=== PATIENT | female | born 1980 | race Caucasian/White ===

== ENCOUNTER 2016-04-21 18:58 | Emergency (ER) | payer SELFPAY ==
--- NOTE | 2016-04-21 19:09 | ER Document Report ---
ED Medical Screen (RME) - General Stated Complaint: COUGH,FEVER,DIFFICULTY BREATHING Notes: Patient is a 35-year-old female with productive cough, fever and sore throat for 2 weeks. Admits to shortness of breath, headaches, body aches. Tobacco use. Did not receive a flu vaccine. I have greeted and performed a rapid initial assessment of this patient. A comprehensive ED assessment and evaluation of the patient, analysis of test results and completion of the medical decision making process will be conducted by additional ED providers. TRAVEL OUTSIDE OF THE [place] IN LAST 30 DAYS: No - Related Data Allergies/Adverse Reactions: chlorpromazine HCl [From Thorazine] Adverse Reaction (Unknown, Verified 19:06) haloperidol [From Haldol] Adverse Reaction (Unknown, Verified 04/21/16 19:06) Past Medical History - Past Medical History Cardiac Medical History: Reports: Hx Hypercholesterolemia Pulmonary Medical History: Reports: Hx Asthma, Hx Bronchitis Neurological Medical History: Reports: Hx Migraine GI Medical History: Reports: Hx Gastroesophageal Reflux Disease Musculoskeltal Medical History: Reports Hx Arthritis Psychiatric Medical History: Reports: Hx Attention Deficit Hyperactivity Disorder, Hx Bipolar Disorder, Hx Depression Past Surgical History: Reports: Hx Tubal Ligation - Immunizations Immunizations up to date: Yes Hx Diphtheria, Pertussis, Tetanus Vaccination: Yes - 2011
[2016-04-21] MEDS ORDERED: IPRATROPIUM/ALBUTEROL 0.5-2.5 MG/3 ML AMPUL NEB ONE (19:12)
[2016-04-21] MEDS ORDERED: PREDNISONE 20 MG TABLET PO ONE (20:15)
--- NOTE | 2016-04-21 20:16 | ER Document Report ---
ED Respiratory Problem - General Chief Complaint: Cough Stated Complaint: COUGH,FEVER,DIFFICULTY BREATHING Time seen by provider: 20:00 Mode of Arrival: Ambulatory Information source: Patient TRAVEL OUTSIDE OF THE [place] IN LAST 30 DAYS: No - HPI Onset: Other - 2 weeks Duration: Continuous Severity: Moderate Context: Smoker. denies: DVT, Hx asthma, Hx CHF, Hx COPD, Malignancy, , Recent cardiac event, Recent foreign travel, Recent long distance trvl, Recent immobilization, Recent surgery Associated symptoms: Cough, Fever, Sore Throat. denies: Ankle/leg swelling Notes: Patient arrives with complaints of cough for approximately 2 weeks now. She is a smoker. She states that she hasn't been resting very much at night secondary to her cough and states that she has some mild lower rib pain with coughing for the last few days. She denies any significant difficulty breathing. She's felt like she's had a fever and has had hot and cold chills. She denies any nausea vomiting. She states that she woke up this morning she coughed up some green colored sputum that had a small speck of blood in it. She's had none since that time this morning. She states that now she is coughing up white sputum. She has no PE risk factors. He complains of decreased appetite. She states that she has had some intermittent headaches for the last few weeks as well. She denies a significant headache currently. - Related Data Allergies/Adverse Reactions: chlorpromazine HCl [From Thorazine] Adverse Reaction (Unknown, Verified 19:06) haloperidol [From Haldol] Adverse Reaction (Unknown, Verified 04/21/16 19:06) Past Medical History - Social History Smoking Status: Current Every Day Smoker Chew tobacco use (# tins/day): No Frequency of alcohol use: Occasional Drug Abuse: None Family History: Arthritis, DM, Hyperlipidemia, Hypertension Patient has suicidal ideation: No Patient has homicidal ideation: No - Past Medical History Cardiac Medical History: Reports: Hx Hypercholesterolemia Pulmonary Medical History: Reports: Hx Asthma, Hx Bronchitis Neurological Medical History: Reports: Hx Migraine Renal/ Medical History: Denies: Hx Peritoneal Dialysis GI Medical History: Reports: Hx Gastroesophageal Reflux Disease Musculoskeltal Medical History: Reports Hx Arthritis Psychiatric Medical History: Reports: Hx Attention Deficit Hyperactivity Disorder, Hx Bipolar Disorder, Hx Depression Past Surgical History: Reports: Hx Tubal Ligation - Immunizations Immunizations up to date: Yes Hx Diphtheria, Pertussis, Tetanus Vaccination: Yes - 2011 Hx Pneumococcal Vaccination: 05/12/12 Review of Systems - Review of Systems -: Yes All other systems reviewed and negative Physical Exam - Vital signs Interpretation: Normal - General General appearance: Appears well, Alert - HEENT Head: Normocephalic, Atraumatic Eyes: Normal Pupils: PERRL Ears: Normal External canal: Normal Tympanic membrane: Normal Nasal: Clear rhinorrhea Mouth/Lips: Normal Mucous membranes: Normal Pharynx: Normal, Post nasal drainage. No: Erythema, Exudate, Peritonsillar abscess, Retropharyngeal abscess, Uvular edema Neck: Normal. No: Anterior cervical chain, Meningismus - Respiratory Respiratory status: No respiratory distress Chest status: Nontender Breath sounds: Normal Chest palpation: Normal - Cardiovascular Rhythm: Regular Heart sounds: Normal auscultation Murmur: No - Extremities General upper extremity: Normal inspection, Nontender, Normal color, Normal ROM , Normal temperature General lower extremity: Normal inspection, Nontender, Normal color, Normal ROM , Normal temperature, Normal weight bearing. No: Edema, Kimberly's sign - Neurological Neuro grossly intact: Yes Cognition: Normal Orientation: AAOx4 Marshall Coma Scale Eye Opening: Spontaneous Marshall Coma Scale Verbal: Oriented Marshall Coma Scale Motor: Obeys Commands Marga Coma Scale Total: 15 Speech: Normal Motor strength normal: LUE, RUE, LLE, RLE Sensory: Normal - Psychological Associated symptoms: Normal affect, Normal mood - Skin Skin Temperature: Warm Skin Moisture: Dry Skin Color: Normal Course - Re-evaluation Re-evalutation: 04/21/16 20:15 Patient was given breathing treatment from triage. She states she feels significantly better after her breathing treatment. She has no wheezing currently, but states that she was wheezing prior to her breathing treatment. 04/21/16 20:34 Patient is nontoxic appearing with stable vitals. She continues to have clear breath sounds. Chest x-ray shows no acute abnormalities. Patient will be discharged home with steroids for bronchitis. She was also given Tessalon to help with her cough. She was offered a albuterol inhaler, but states that she has some at home already. She is instructed to follow-up with her primary care doctor for spelled appointment for recheck and return if getting worse in any way. 02/09/17 20:35 The patient is noted to have elevated blood pressure during today's emergency department visit. The patient was informed of this finding. The patient was instructed that this may be related to pre-hypertension and requires further evaluation with a primary care provider. The patient has no hypertensive symptoms at this time. - Diagnostic Test Radiology reviewed: Reports reviewed - Negative chest x-ray Discharge - Discharge Clinical Impression: Bronchitis Condition: Stable Disposition: HOME, SELF-CARE Instructions: Bronchitis ([facility]) Additional Instructions: Take medications as prescribed. Stop smoking. Follow-up with her doctor the next label appointment, sooner if getting worse in any way. Your blood pressure was elevated during today's visit. Have this rechecked with your doctor. Prescriptions: Benzonatate [Tessalon Perle 100 mg Capsule] 100 mg PO Q8HP PRN #20 cap PRN Reason: Prednisone 60 mg PO DAILY #15 tablet Forms: Elevated Blood Pressure, Smoking Cessation Education
[2016-04-21 20:57] VITALS: BP 132/88
== END 2016-04-21 20:58 | disposition home or self-care (01) ==
LOC: ER 18:58
DX: J40 Bronchitis, not specified as acute or chronic (principal); R50.9 Fever, unspecified; R06.00 Dyspnea, unspecified; F17.200 Nicotine dependence, unspecified, uncomplicated; E78.00 Pure hypercholesterolemia, unspecified; K21.9 Gastro-esophageal reflux disease without esophagitis; Z98.51 Tubal ligation status
CPT/HCPCS: 94640; 99283; 71020; J7512; J7620

== ENCOUNTER 2016-05-11 23:37 | Emergency (ER) | payer SELFPAY ==
--- NOTE | 2016-05-11 23:54 | ER Document Report ---
ED General - General TRAVEL OUTSIDE OF THE [place] IN LAST 30 DAYS: No <ANDREW SUAREZ - Last Filed: 05/12/16 06:41> <ELINA TOBAR - Last Filed: 05/12/16 15:53> - General Chief Complaint: Overdose Stated Complaint: POSSIBLE OVERDOSE Notes: Patient is a 35 year old female presents with complaint of overdose. Patient says she took medications just over an hour ago. She said that she is "tired of living". She has history of multiple overdoses and multiple suicide attempts in the past. Patient took twenty 10mg Senapine tablets. There was an empty pill bottle that initially had Tessalon Perles and it. says that she did not take any Tessalon Perles and that she was keeping if you've blood pressure medications in this bottle. She says she took 3 blood pressure pills. She says the blood pressure pills were given to her by a friend. She does not know the name of the blood pressure medication. For the paramedics she was a little bit sleepy and her blood pressure systolically was in the 90s. They did give her 250 mL normal saline in route. She otherwise complains of nausea. She has no plans this time. She does admit to alcohol. She denies taking any other medications other than what is listed above. (ANDREW SUAREZ) - Related Data Allergies/Adverse Reactions: chlorpromazine HCl [From Thorazine] Adverse Reaction (Unknown, Verified 19:06) haloperidol [From Haldol] Adverse Reaction (Unknown, Verified 04/21/16 19:06) Past Medical History - Social History Smoking Status: Current Every Day Smoker Frequency of alcohol use: Heavy Drug Abuse: Prescription drugs Family History: Arthritis, DM, Hyperlipidemia, Hypertension - Past Medical History Cardiac Medical History: Reports: Hx Hypercholesterolemia Pulmonary Medical History: Reports: Hx Asthma, Hx Bronchitis Neurological Medical History: Reports: Hx Migraine Renal/ Medical History: Denies: Hx Peritoneal Dialysis GI Medical History: Reports: Hx Gastroesophageal Reflux Disease Musculoskeltal Medical History: Reports Hx Arthritis Psychiatric Medical History: Reports: Hx Attention Deficit Hyperactivity Disorder, Hx Bipolar Disorder, Hx Depression Past Surgical History: Reports: Hx Tubal Ligation - Immunizations Immunizations up to date: Yes Hx Diphtheria, Pertussis, Tetanus Vaccination: Yes - 2011 Hx Pneumococcal Vaccination: 05/12/12 <ANDREW SUAREZ - Last Filed: 05/12/16 06:41> Review of Systems <ANDREW SUAREZ - Last Filed: 05/12/16 06:41> <ELINA TOBAR - Last Filed: 05/12/16 15:53> - Review of Systems Notes: My Normal Review Basic REVIEW OF SYSTEMS: CONSTITUTIONAL : Denies fever, chills, or sweats. Denies recent illness. EENT: Denies eye, ear, throat, or mouth pain or symptoms. Denies nasal or sinus congestion. CARDIOVASCULAR: Denies chest pain. RESPIRATORY: Denies cough, cold, or chest congestion. Denies shortness of breath, difficulty breathing, or wheezing. GASTROINTESTINAL: Denies abdominal pain. Nausea. GENITOURINARY: Denies difficulty urinating, painful urination, burning, frequency, or blood in urine. MUSCULOSKELETAL: Denies neck or back pain or joint pain or swelling. SKIN: Denies rash or skin lesions. HEMATOLOGIC : Denies easy bruising or bleeding. NEUROLOGICAL: Sleepy PSYCHIATRIC: Suicidal ideations ALL OTHER SYSTEMS REVIEWED AND NEGATIVE. (ANDREW SUAREZ) Physical Exam <ANDREW SUAREZ - Last Filed: 05/12/16 06:41> <ELINA TOBAR - Last Filed: 05/12/16 15:53> - Vital signs Vitals: Temp 97.7 F 05/11/16 23:57 - Notes Notes: General Appearance: Well nourished, alert but sleepy, cooperative, no acute distress, no obvious discomfort. Vitals: reviewed, See vital signs table. Head: no swelling or tenderness to the head Eyes: PERRL, EOMI, Conjuctiva clear Mouth: No decreasd moisture Neck: Supple, no neck tenderness, No thyromegaly Lungs: No wheezing, No rales, No rhonci, No accessory muscle use, good air exchange bilaterally. Heart: Normal rate, Regular rythm, No murmur, no rub Abdomen: Normal BS, soft, No rigidity, No abdominal tenderness, No guarding, no rebound, no abdominal masses, no organomegaly Extremities: strength 5/5 in all extremities, good pulses in all extremities, no swelling or tenderness in the extremities, no edema. Skin: warm, dry, appropriate color, no rash Neuro: speech clear, oriented x 3, sleepy affect, responds appropriately to questions. Cranial nerves II through XII are intact. Patient moves all extremities on her own. (ANDREW SUAREZ) Course - Laboratory Result Diagrams: 05/11/16 23:51 05/11/16 23:51 <ANDREW SUAREZ - Last Filed: 05/12/16 06:41> - Laboratory Result Diagrams: 05/11/16 23:51 05/12/16 10:36 <ELINA TOBAR - Last Filed: 05/12/16 15:53> - Re-evaluation Re-evalutation: 05/12/16 00:02 I spoke with the [facility], Monique. She says that the Senapine can potentially cause some hypotension and prolonged QT intervals. She recommends close monitoring for at least the next 6 hours. She recommends serial EKGs of the initial EKG showed prolonged QTC. Initial QTC is borderline. I will repeat EKG and one hour. (ANDREW SUAREZ) 05/12/16 15:49 Patient seen by psychiatric counselor, who agrees with me that the patient is not a risk to herself or others at the current time. The patient denies current suicidal or homicidal ideation and shows no evidence for hallucinations. Patient agrees to outpatient follow-up and management. IVC orders are written. There is no evidence for hypotension or residual effects of patient's minor overdose. (ELINA TOBAR) - Vital Signs Vital signs: Temp Pulse Resp BP Pulse Ox 98.0 F 18 102/61 97 05/12/16 08:46 05/12/16 10:36 05/12/16 10:36 05/12/16 10:36 - Laboratory Laboratory results interpreted by me: 05/11/16 05/11/16 05/11/16 23:51 23:51 23:51 MCV 99 H MCH 34.6 H Potassium 3.3 L Chloride Urine Blood MODERATE H Salicylates < 1.0 L Acetaminophen < 10 L 05/12/16 10:36 MCV MCH Potassium Chloride 110 H Urine Blood Salicylates Acetaminophen - EKG Interpretation by Me Additional EKG results interpreted by me: 05/11/16 23:53 EKG is reviewed and interpreted by me. EKG shows normal sinus rhythm with rate of [address] segment elevation or depression. No ischemic T wave inversions. MA interval, QRS duration, QTC intervals are within normal range. 05/12/16 04:58 EKG #23 reviewed and interpreted by me. EKG shows normal sinus rhythm with a rate of 87 beats per minute. No ST segment elevation or depression. No ischemic T wave inversions. MA interval, QRS duration, QTC intervals are within normal range. (ANDREW SUAREZ) - Transfer of Care Notes: 05/12/16 06:42 Patient's has had some intermittent hypotension as expected from her overdose. Patient is currently awake and alert and oriented. She looks very well and exam. Once her blood pressure is completely stabilized she'll be medically stable for psychiatric evaluation. Dictation of this chart was performed using voice recognition software; therefore, there may be some unintended grammatical errors. (ANDREW SUAREZ) Discharge <ANDREW SUAREZ - Last Filed: 05/12/16 06:41> <ELINA TOBAR - Last Filed: 05/12/16 15:53> - Discharge Clinical Impression: Bipolar 1 disorder Overdose Qualifiers: Encounter type: initial encounter Injury intent: intentional self-harm Qualified Code(s): T50.902A - Poisoning by unspecified drugs, medicaments and biological substances, intentional self-harm, initial encounter Condition: Stable Disposition: HOME, SELF-CARE Instructions: Bipolar Disorder ([facility]) Additional Instructions: Return to the emergency Department in case of any thought she wanted to hurt herself or others. Follow-up with her regular practitioner for psychiatric care. Followup with [facility] Psych services group.
[2016-05-11] MEDS ORDERED: NORMAL SALINE 1000 ML 1,000 ML IV ONE (23:59)
[2016-05-12 00:13] LABS: ABSOLUTE EOSINOPHILS # (AUTO) 0.1 10^3/uL (0.0-0.6); ABSOLUTE MONOCYTES (AUTO) 0.6 10^3/uL (0.1-1.4); ABSOLUTE NEUT (AUTO) 3.8 10^3/uL (1.7-8.2); BASOPHILS % (AUTO) 0.7 % (0-2); EOSINOPHILS % (AUTO) 1.4 % (0-6); HEMATOCRIT 39.8 % (36.0-47.0); HEMOGLOBIN 13.9 g/dL (12.0-15.5); HGB HCT DIFFERENCE 1.9; LYMPHOCYTES % (AUTO) 30.6 % (13-45); MEAN CORPUSCULAR HEMOGLOBIN 34.6 pg (27.0-33.4); MEAN CORPUSCULAR VOLUME 99 fl (80-97); MONOCYTES % (AUTO) 9.5 % (3-13); RED BLOOD COUNT 4.02 10^6/uL (3.72-5.28); RED CELL DISTRIBUTION WIDTH 13.7 % (11.5-14.0); SEGMENTED NEUTROPHILS % (AUTO) 57.8 % (42-78); WHITE BLOOD COUNT 6.6 10^3/uL (4.0-10.5)
[2016-05-12 00:16] LABS: APPEARANCE,URINE SLIGHTLY-CLOUDY; BILIRUBIN,URINE NEGATIVE (NEGATIVE); GLUCOSE, URINE NEGATIVE (NEGATIVE); KETONES,URINE NEGATIVE (NEGATIVE); LEUKOCYTE ESTERASE,URINE NEGATIVE (NEGATIVE); NITRITE,URINE NEGATIVE (NEGATIVE); PROTEIN,URINE NEGATIVE (NEGATIVE); URINE SPECIFIC GRAVITY 1.005; UROBILINOGEN,URINE NEGATIVE mg/dL (<2.0)
[2016-05-12 00:26] LABS: ALANINE AMINOTRANSFERASE 30 U/L (9-52); ALBUMIN 3.8 g/dL (3.5-5.0); ALCOHOL 53 mg/dL (NONE DETECTED); ALKALINE PHOSPHATASE 79 U/L (38-126); ANION GAP 12 (5-19); ASPARTATE AMINO TRANSFERASE 27 U/L (14-36); BILIRUBIN,TOTAL 0.8 mg/dL (0.2-1.3); BLOOD UREA NITROGEN 9 mg/dL (7-20); CALCIUM 9.4 mg/dL (8.4-10.2); CARBON DIOXIDE 23 mmol/L (22-30); CHLORIDE 105 mmol/L (98-107); CREATININE RESULT 0.57 mg/dL (0.52-1.25); GLUCOSE 80 mg/dL (75-110); MAGNESIUM 1.7 mg/dL (1.6-2.3); POTASSIUM 3.3 mmol/L (3.6-5.0); SODIUM 139.8 mmol/L (137-145); TOTAL PROTEIN 6.5 g/dL (6.3-8.2)
[2016-05-12 00:33] LABS: URINE BARBITURATES SCREEN NEGATIVE; URINE METHADONE SCREEN NEGATIVE; URINE OPIATES LOW UNCONFIRMED POSITIVE; URINE PHENCYCLIDINE SCREEN NEGATIVE
[2016-05-12] MEDS ORDERED: NORMAL SALINE 1000 ML 1,000 ML IV ONE (06:00)
--- NOTE | 2016-05-12 08:29 | EKG REPORT ---
SEVERITY:- NORMAL ECG - SINUS RHYTHM : Confirmed by: Cj Solis MD 12-May-2016 08:29:12
--- NOTE | 2016-05-12 08:30 | EKG REPORT ---
SEVERITY:- NORMAL ECG - SINUS RHYTHM : Confirmed by: Cj Solis MD 12-May-2016 08:29:23
[2016-05-12] MEDS ORDERED: NORMAL SALINE 1000 ML 1,000 ML IV PRN (08:38)
[2016-05-12] MEDS ORDERED: POTASSIUM CHLORIDE 10 MEQ TABLET.SA PO ONE (10:27)
[2016-05-12 11:05] LABS: ANION GAP 6 (5-19); BLOOD UREA NITROGEN 9 mg/dL (7-20); CALCIUM 8.6 mg/dL (8.4-10.2); CARBON DIOXIDE 23 mmol/L (22-30); CHLORIDE 110 mmol/L (98-107); CREATININE RESULT 0.62 mg/dL (0.52-1.25); GLUCOSE 84 mg/dL (75-110); SODIUM 138.5 mmol/L (137-145)
[2016-05-12 16:12] VITALS: BP 122/83
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
== END 2016-05-12 16:15 | disposition home or self-care (01) ==
LOC: ER 23:37
DX: T50.902A Poisoning by unspecified drugs, medicaments and biological substances, intentional self-harm, initial encounter (principal); R11.0 Nausea; F31.9 Bipolar disorder, unspecified
CPT/HCPCS: 93005 ×2; 99285; 96360; 96361; 36415; 80307 ×4; 83735; 85025; 80048; 80053; 81001; 93010 ×2; J7030

== ENCOUNTER 2016-11-19 17:44 | Emergency (ER) | payer SELFPAY ==
--- NOTE | 2016-11-19 18:07 | ER Document Report ---
ED Substance Abuse / Acc. OD - General Mode of Arrival: Medic Information source: Patient, Emergency Med Personnel TRAVEL OUTSIDE OF THE [place] IN LAST 30 DAYS: No - HPI Patient complains to provider of: Alcohol abuse, Substance abuse Onset: Other - Refer to HPI notes <TAMIKO CORDERO - Last Filed: 11/19/16 23:06> <EMMAHILARY MCCARTNEY - Last Filed: 11/19/16 23:58> - General Chief Complaint: Possible Overdose Stated Complaint: POSSIBLE OVERDOSE Time Seen by Provider: 11/19/16 17:59 - HPI Notes: Patient is a 36-year-old female presented emergency department for possible overdose. Patient smoked cocaine around 14:00 and has been using this drug heavily over the past 4 days; patient states she has been using $70-$100 dollars of cocaine per night. Patient also took 6 Xanax around 16:00 today. Patient had 4 40 oz beers today as well. Patient states she wants to get help for alcohol and drugs. Patient states she is suicidal and has a plan to walk in front of a moving vehicle. Patient was talking with [facility] for a well check and complained of chest pain. 911 was contacted. When EMS arrived the patient was only arousable to sternal rub. Patient refused charcoal for EMS. Patient did vomit in the ambulance. Patient states she started drinking alcohol again about 2 weeks ago. Patient states she has a history of pancreatitis. Patient sees [facility] for depression and is taking Seroquel and Zoloft. (TAMIKO CORDERO) - Related Data Allergies/Adverse Reactions: chlorpromazine HCl [From Thorazine] Adverse Reaction (Unknown, Verified 19:06) haloperidol [From Haldol] Adverse Reaction (Unknown, Verified 04/21/16 19:06) Home Medications: Current Home Medications No Home Medications 11/19/16 [History] Past Medical History - General Information source: Patient - Social History Smoking Status: Never Smoker Cigarette use (# per day): No Chew tobacco use (# tins/day): No Frequency of alcohol use: Heavy Drug Abuse: Cocaine, Prescription drugs Family History: Arthritis, DM, Hyperlipidemia, Hypertension Patient has suicidal ideation: No Patient has homicidal ideation: No - Past Medical History Cardiac Medical History: Reports: Hx Hypercholesterolemia Pulmonary Medical History: Reports: Hx Asthma, Hx Bronchitis Neurological Medical History: Reports: Hx Migraine GI Medical History: Reports: Hx Gastroesophageal Reflux Disease Musculoskeltal Medical History: Reports Hx Arthritis Psychiatric Medical History: Reports: Hx Attention Deficit Hyperactivity Disorder, Hx Bipolar Disorder, Hx Depression Past Surgical History: Reports: Hx Tubal Ligation - Immunizations Immunizations up to date: Yes Hx Diphtheria, Pertussis, Tetanus Vaccination: Yes - 2011 Hx Pneumococcal Vaccination: 05/12/12 <TAMIKO CODRERO - Last Filed: 11/19/16 23:06> Review of Systems - Review of Systems Constitutional: No symptoms reported EENT: No symptoms reported Cardiovascular: No symptoms reported Respiratory: No symptoms reported Gastrointestinal: See HPI, Nausea, Vomiting Neurological/Psychological: See HPI, Suicidal ideation <TAMIKO CORDERO - Last Filed: 11/19/16 23:06> - Review of Systems Neurological/Psychological: denies: Homicidal ideation -: Yes All other systems reviewed and negative <HILARY BO - Last Filed: 11/19/16 23:58> Physical Exam <TAMIKO CORDERO - Last Filed: 11/19/16 23:06> <HILARY BO - Last Filed: 11/19/16 23:58> - Vital signs Vitals: Resp 18 11/19/16 17:48 - Notes Notes: GENERAL: Alert, interacts well. Sleeping and only arouses with sternal rub. Patient has no signs of withdrawal. No acute distress. HEAD: Normocephalic, atraumatic. EYES: Pupils equal, round, and reactive to light. Extraocular movements intact. ENT: Oral mucosa moist, tongue midline. NECK: Full range of motion. Supple. Trachea midline. LUNGS: Clear to auscultation bilaterally, no wheezes, rales, or rhonchi. No respiratory distress. HEART: Regular rate and rhythm. No murmurs, gallops, or rubs. ABDOMEN: Soft, non-tender. Non-distended. Bowel sounds present in all 4 quadrants. EXTREMITIES: Moves all 4 extremities spontaneously. No edema. No cyanosis. NEUROLOGICAL: Alert and oriented x3. Normal speech. PSYCH: Slightly depressed affect, tearful when discussing killing herself. SKIN: Warm, dry, normal turgor. No rashes or lesions noted. (TAMIKO CORDERO) Course - Laboratory Result Diagrams: 11/19/16 17:47 11/19/16 17:47 <TAMIKO CORDERO - Last Filed: 11/19/16 23:06> - Laboratory Result Diagrams: 11/19/16 17:47 11/19/16 17:47 <HILARY BO - Last Filed: 11/19/16 23:58> - Re-evaluation Re-evalutation: 11/19/16 22:59 CBC grossly unremarkable, CMP shows slight hypernatremia with a sodium of 147.9 , AST, ALT and alkaline phosphatase all mildly elevated consistent with alcoholic hepatitis. Cardiac enzymes negative, test negative, urinalysis unremarkable, urine drug screen shows benzodiazepines and cocaine, serum alcohol level was 273, salicylates and acetaminophen are undetectable. I am concerned that the patient is a suicide risk. Patient also wishes to be admitted to a rehab facility. Discussed with patient that she will be placed on involuntary commitment papers as I am concerned that she is a true suicide risk and she will be evaluated by mental health in the morning. After remaining on the monitor for several hours patient had no further hypertension or hypotension and her tachycardia resolved, she is now medically cleared and moved to a nonmonitored bed. Patient requested something for sleep, discussed with her that she could have Vistaril. Patient states that that will not help. Discussed with patient that given the cocaine, Xanax and alcohol there are no other drugs that are safe this time. Just after the patient requested sleeping medication again the patient apparently left the department. Staff is in the process of trying to find the patient at this time. 11/19/16 23:07 Patient was found in the pod 5 bathroom. Returned to her bed. 11/19/16 23:58 (HILARY BO) - Vital Signs Vital signs: Temp Pulse Resp BP Pulse Ox 97.8 F 20 99/64 L 94 11/19/16 19:54 11/19/16 21:27 11/19/16 21:27 11/19/16 21:27 - Laboratory Laboratory results interpreted by me: 11/19/16 11/19/16 17:47 17:47 MCV 98 H Sodium 147.9 H Chloride 112 H AST 53 H ALT 65 H Alkaline Phosphatase 130 H Salicylates < 1.0 L Acetaminophen < 10 L - EKG Interpretation by Me Additional EKG results interpreted by me: 11/19/16 23:01 EKG shows sinus rhythm rate 93, normal axis, normal intervals, no ST segment elevations or depressions, no T-wave inversions per my interpretation. (HILARY BO) Discharge <TAMIKO CORDERO - Last Filed: 11/19/16 23:06> <HILARY BO - Last Filed: 11/19/16 23:58> - Discharge Clinical Impression: Suicidal ideation, Cocaine use, Alcohol abuse, Benzodiazepine abuse Acute alcohol intoxication Qualifiers: Complication of substance-induced condition: uncomplicated Qualified Code(s): F10.929 - Alcohol use, unspecified with intoxication, unspecified Depression Qualifiers: Depression Type: unspecified Qualified Code(s): F32.9 - Major depressive disorder, single episode, unspecified Condition: Stable Disposition: PSYCH HOSP/UNIT Scribe Attestation: 11/19/16 23:27 I personally performed the services described in the documentation, reviewed and edited the documentation which was dictated to the scribe in my presence, and it accurately records my words and actions. (HILARY BO) Scribe Documentation - Scribe Written by Linibjoe:: Kathy Arguello 11/19/2016 22:20 acting as scribe for :: Christiano <TAMIKO CORDERO - Last Filed: 11/19/16 23:06>
[2016-11-19 18:38] LABS: ABSOLUTE EOSINOPHILS # (AUTO) 0.1 10^3/uL (0.0-0.6); ABSOLUTE LYMPHOCYTES (AUTO) 2.6 10^3/uL (0.5-4.7); ABSOLUTE MONOCYTES (AUTO) 0.6 10^3/uL (0.1-1.4); ABSOLUTE NEUT (AUTO) 4.3 10^3/uL (1.7-8.2); BASOPHILS % (AUTO) 0.4 % (0-2); EOSINOPHILS % (AUTO) 1.7 % (0-6); HEMATOCRIT 45.6 % (36.0-47.0); HEMOGLOBIN 15.5 g/dL (12.0-15.5); HGB HCT DIFFERENCE 0.9; LYMPHOCYTES % (AUTO) 33.6 % (13-45); MEAN CORPUSCULAR HEMOGLOBIN 33.4 pg (27.0-33.4); MEAN CORPUSCULAR HGB CONC 33.9 g/dL (32.0-36.0); MEAN CORPUSCULAR VOLUME 98 fl (80-97); MONOCYTES % (AUTO) 8.2 % (3-13); RED BLOOD COUNT 4.63 10^6/uL (3.72-5.28); SEGMENTED NEUTROPHILS % (AUTO) 56.1 % (42-78); WHITE BLOOD COUNT 7.7 10^3/uL (4.0-10.5)
[2016-11-19 18:43] LABS: ALANINE AMINOTRANSFERASE 65 U/L (9-52); ALBUMIN 4.1 g/dL (3.5-5.0); ALCOHOL 273 mg/dL (NONE DETECTED); ALKALINE PHOSPHATASE 130 U/L (38-126); ANION GAP 12 (5-19); ASPARTATE AMINO TRANSFERASE 53 U/L (14-36); BILIRUBIN,DIRECT 0.4 mg/dL (0.0-0.4); BILIRUBIN,TOTAL 0.6 mg/dL (0.2-1.3); BLOOD UREA NITROGEN 9 mg/dL (7-20); CALCIUM 9.7 mg/dL (8.4-10.2); CARBON DIOXIDE 24 mmol/L (22-30); CHLORIDE 112 mmol/L (98-107); GLUCOSE 95 mg/dL (75-110); POTASSIUM 4.2 mmol/L (3.6-5.0); SODIUM 147.9 mmol/L (137-145); TOTAL PROTEIN 7.1 g/dL (6.3-8.2)
[2016-11-19 18:49] LABS: APPEARANCE,URINE CLEAR; BILIRUBIN,URINE NEGATIVE (NEGATIVE); GLUCOSE, URINE NEGATIVE (NEGATIVE); KETONES,URINE NEGATIVE (NEGATIVE); LEUKOCYTE ESTERASE,URINE NEGATIVE (NEGATIVE); NITRITE,URINE NEGATIVE (NEGATIVE); PROTEIN,URINE NEGATIVE (NEGATIVE); URINE SPECIFIC GRAVITY 1.001; UROBILINOGEN,URINE NEGATIVE mg/dL (<2.0)
[2016-11-19 19:11] LABS: URINE BARBITURATES SCREEN NEGATIVE; URINE METHADONE SCREEN NEGATIVE; URINE OPIATES LOW NEGATIVE; URINE PHENCYCLIDINE SCREEN NEGATIVE
[2016-11-19 19:36] LABS: CREATINE KINASE MB 0.59 ng/mL (<4.55)
[2016-11-19 19:37] LABS: TROPONIN I < 0.012 ng/mL
[2016-11-19] MEDS ORDERED: HYDROXYZINE PAMOATE 50 MG CAPSULE PO ONE (22:46)
--- NOTE | 2016-11-20 08:09 | EKG REPORT ---
SEVERITY:- NORMAL ECG - SINUS RHYTHM : Confirmed by: Cj Solis MD 20-Nov-2016 08:08:50
--- NOTE | 2016-11-20 09:58 | ER Document Report ---
ED Psych Disorder / Suicide - General Mode of Arrival: Medic Information source: Patient, [facility] Records TRAVEL OUTSIDE OF THE [place] IN LAST 30 DAYS: No - HPI Patient complains to provider of: Other - substance abuse, ETOH, crack, Xanax Onset: Other Onset was: Cannot confirm - roughly 3.5 weeks ago, per pateint Suicide Risk Factors: Bipolar, Depressed, Prior suicide attempt, Substance abuse , Other mental health dx. Situational problems related to: Significant other, Other Normal mood: Yes - this morning Associated symptoms: Normal affect, Normal mood, Anxious - patient acknowledges her baseline includes anxiety, Irritable - also notd as basline for patient Similar symptoms previously: Yes - since 2010 per EMR Recently seen / treated by doctor: Yes - [facility] <MONE EDWARDS - Last Filed: 11/20/16 09:45> <MISTY GLYNN - Last Filed: 11/20/16 11:02> - General Chief Complaint: Possible Overdose Stated Complaint: POSSIBLE OVERDOSE Time Seen by Provider: 11/19/16 17:59 - HPI Notes: Patient is a 36 year old female who presents acutely intoxicated, and under the influence of crack cocaine, and Xanax. Patient reported upon arrival that she took about 6 Xanax, but this morning denies she was attempting suicide. She states she relapsed about 3.5 weeks ago with alcohol, which she has resumed daily use. She denies daily use of crack and states she was just with the wrong people. Note, patient did endorse frequent use last night. Patient denies wanting to by suicide. Patient states she was doing well, and Jeannine transferred her services to [facility] in [place]. Patient states [facility] was supposed to mail her Zoloft and Seroquel, which she states never happened. She states if she had her medications, she would not have relapsed. Patient states she attempted to follow up with them, and was told they mailed the meds, but they came back "return to sender." Patient states she is scheduled to follow up with [facility] the , and states she does NOT want to go to detox, despite offer to assist with linking. Patient denies suicidal ideations, denies homicidal ideations. Patient is alert and orientated to person place and circumstance. Patient's mood is euthymic with congruent affect. Patient denies suicidal and homicidal ideation. Patient denies auditory and visual hallucinations; no delusions are noted. Thought process is logical organized and linear. Conversational speech was within normal rate tone and prosody. Eye contact was well maintained. Intellectual abilities were estimated within average range. Attention and concentration are fair. Insight, judgment, impulse control are poor. 303.90 (F10.20) Alcohol Use Disorder, Moderate 304.10 (F13.20) Benzodiazepine Use Disorder, Moderate 296.52 (F31.32) Bipolar I Disorder, Depressed, Recurrent, Moderate by history Impression\\plan: Patient is recommended for rescind of IVC is considered psychiatrically cleared for discharge. She no longer meets criteria for IVC per [place] GS 122C. Patient denies suicidal ideation or thoughts of self-harm. Patient has a follow up appointment prescheduled with Karen Monday, the . Patient states she prefers to follow up outpatient because she is attempting to get approved for disability, and going to rehab would result in another denial. I consulted with Dr. Pink in regards to the care and management of this patient. (MONE EDWARDS) - Related Data Allergies/Adverse Reactions: chlorpromazine HCl [From Thorazine] Adverse Reaction (Unknown, Verified 19:06) haloperidol [From Haldol] Adverse Reaction (Unknown, Verified 04/21/16 19:06) Home Medications: Current Home Medications No Home Medications 11/19/16 [History] Past Medical History - General Information source: Patient, [facility] Records - Social History Smoking Status: Unknown if Ever Smoked Cigarette use (# per day): No Chew tobacco use (# tins/day): No Frequency of alcohol use: Heavy Drug Abuse: Cocaine, Prescription drugs Family History: Arthritis, DM, Hyperlipidemia, Hypertension Patient has suicidal ideation: No Patient has homicidal ideation: No - Past Medical History Cardiac Medical History: Reports: Hx Hypercholesterolemia Pulmonary Medical History: Reports: Hx Asthma, Hx Bronchitis Neurological Medical History: Reports: Hx Migraine Renal/ Medical History: Denies: Hx Peritoneal Dialysis GI Medical History: Reports: Hx Gastroesophageal Reflux Disease Musculoskeltal Medical History: Reports Hx Arthritis Psychiatric Medical History: Reports: Hx Attention Deficit Hyperactivity Disorder, Hx Bipolar Disorder, Hx Depression Past Surgical History: Reports: Hx Tubal Ligation - Immunizations Immunizations up to date: Yes Hx Diphtheria, Pertussis, Tetanus Vaccination: Yes - 2011 Hx Pneumococcal Vaccination: 05/12/12 <MONE EDWARDS - Last Filed: 11/20/16 09:45> - Vital signs Vitals: Resp 18 11/19/16 17:48 Course - Laboratory Result Diagrams: 11/19/16 17:47 11/19/16 17:47 <MONE EDWARDS - Last Filed: 11/20/16 09:45> - Laboratory Result Diagrams: 11/19/16 17:47 11/19/16 17:47 <MISTY GLYNN - Last Filed: 11/20/16 11:02> - Re-evaluation Re-evalutation: 11/20/16 11:02 Patient was evaluated by mental health team. Agree with assessment plan at this time. Discussed with patient patient agrees to follow-up as outpatient. No complaints at this time. Patient will be discharged. (MISTY GLYNN) - Vital Signs Vital signs: Temp Pulse Resp BP Pulse Ox 97.9 F 64 16 133/66 H 98 11/20/16 10:16 11/20/16 10:16 11/20/16 10:16 11/20/16 10:16 11/20/16 10:16 - Laboratory Laboratory results interpreted by me: 11/19/16 11/19/16 17:47 17:47 MCV 98 H Sodium 147.9 H Chloride 112 H AST 53 H ALT 65 H Alkaline Phosphatase 130 H Salicylates < 1.0 L Acetaminophen < 10 L Discharge <MONE EDWARDS - Last Filed: 11/20/16 09:45> <MISTY GLYNN - Last Filed: 11/20/16 11:02> - Discharge Clinical Impression: Suicidal ideation, Cocaine use, Alcohol abuse, Benzodiazepine abuse Acute alcohol intoxication Qualifiers: Complication of substance-induced condition: uncomplicated Qualified Code(s): F10.929 - Alcohol use, unspecified with intoxication, unspecified Depression Qualifiers: Depression Type: unspecified Qualified Code(s): F32.9 - Major depressive disorder, single episode, unspecified Condition: Stable Disposition: HOME, SELF-CARE Additional Instructions: Bipolar Disorder Bipolar disorder is also called manic-depressive disorder. Depression alternates with brain hyperactivity called manny. Each phase lasts from several days to a few weeks. We don't know exactly what causes bipolar disorder , but it's treatable. During the "manic phase," you may feel elated and energetic. You may have racing thoughts, rapid speech, increased activity, and grandiose ideas. During this time, you may not realize how poor your judgement is. Inappropriate spending, drug abuse, excessive alcohol use, marriage problems, and irresponsible sexual behavior are common during the manic phase. During the "depressive phase," you might feel depressed, guilty, worthless , fatigued, and unable to concentrate. You might have thoughts of suicide. Good treatments are available for bipolar disorder. [place] is a classic drug for bipolar disorder, and is still often useful. If the manic phase is very mild, an antidepressant alone can be prescribed. If the manic phase is very severe, an antipsychotic medicine (such as Haldol) may be needed. The treatment must be matched to your symptoms, so it's important to work closely with your psychiatric care provider. Contact your physician, the hospital emergency center, crisis line, or your counsellor if you are losing control or having self-destructive thoughts. Acute Alcohol Intoxication Your evaluation revealed very high levels of alcohol. You can from drinking a large amount of alcohol rapidly! Further, there's the risk of falls , traffic accidents, and fights. A high portion (about 50 percent) of the serious injuries seen in hospital emergency rooms are caused by alcohol. Alcohol overdosage is usually due to an underlying emotional or psychiatric problem. You may benefit from counselling. If "binge" drinking is an ongoing problem for you, or if you drink ANY AMOUNT of alcohol EVERY day, you most likely have a tendency to alcoholism. You should avoid alcohol totally. We can refer you for treatment. Persons with alcohol problems are often also prone to other addictions -- you should discuss any use of medications or drugs with the doctor. You should be watched at home for the next several hours by someone who has not been drinking. Get extra fluids for the next 24 hours. Call the doctor if there is repeated vomiting, increasing headache, decreasing level of alertness, or any other worsening. Cocaine Abuse Cocaine causes many dangerous medical problems. Problems can occur even with "usual" amounts. Cocaine affects judgement, creating a sense of invulnerability. Cocaine users often make bad decisions that seem "great" at the time. Most cocaine users eventually will be hurt by bad job performance, damaged personal relations, crime, and unsafe sexual practices. Toxic effects of cocaine can include seizures, hallucinations, delusions, high blood pressure, heart damage, or sudden . There's always the risk of a "bad batch." But heart attacks, brain hemorrhages, or cardiac arrest can occur unpredictably even with "normal" use. Injection of cocaine is risky for abscesses, endocarditis (heart infection) , pneumonia, and AIDS. Withdrawal from cocaine often causes anxiety and drug cravings. Some users become paranoid and psychotic. Many treatment programs are available, but you must make the decision to quit. Medication can be prescribed to control the symptoms of cocaine toxicity (beta blockers or benzodiazepines). Withdrawal symptoms may require tranquilizers. Please stop using drugs. Please follow up with [facility] at your prescheduled appointment this Monday. You have denied suicidal ideations this morning. Please return if your symptoms worsen. Referrals: [facility] [place] [Provider Group] - 11/22/16 Scribe Attestation: 11/19/16 23:27 I personally performed the services described in the documentation, reviewed and edited the documentation which was dictated to the scribe in my presence, and it accurately records my words and actions. (MONE EDWARDS)
[2016-11-20 10:17] VITALS: BP 133/66
== END 2016-11-20 10:29 | disposition home or self-care (01) ==
LOC: ER 17:44
DX: R45.851 Suicidal ideations (principal); F14.90 Cocaine use, unspecified, uncomplicated; F10.129 Alcohol abuse with intoxication, unspecified; F13.20 Sedative, hypnotic or anxiolytic dependence, uncomplicated; F32.9 Major depressive disorder, single episode, unspecified; E78.00 Pure hypercholesterolemia, unspecified; K21.9 Gastro-esophageal reflux disease without esophagitis
CPT/HCPCS: 36415; 80053; 80307; 81001; 82550; 82553; 84484; 84703; 85025; 93005; 93010; 99285

== ENCOUNTER 2017-06-12 02:21 | Emergency (ER) | payer SELFPAY ==
[2017-06-12] MEDS ORDERED: IPRATROPIUM/ALBUTEROL 0.5-2.5 MG/3 ML AMPUL NEB ONE (03:21)
[2017-06-12 03:33] LABS: ABSOLUTE EOSINOPHILS # (AUTO) 0.2 10^3/uL (0.0-0.6); ABSOLUTE LYMPHOCYTES (AUTO) 1.9 10^3/uL (0.5-4.7); ABSOLUTE MONOCYTES (AUTO) 0.6 10^3/uL (0.1-1.4); ABSOLUTE NEUT (AUTO) 3.9 10^3/uL (1.7-8.2); BASOPHILS % (AUTO) 0.7 % (0-2); EOSINOPHILS % (AUTO) 3.4 % (0-6); HEMATOCRIT 44.5 % (36.0-47.0); HEMOGLOBIN 15.6 g/dL (12.0-15.5); MEAN CORPUSCULAR HEMOGLOBIN 34.4 pg (27.0-33.4); MEAN CORPUSCULAR HGB CONC 35.1 g/dL (32.0-36.0); MEAN CORPUSCULAR VOLUME 98 fl (80-97); MONOCYTES % (AUTO) 9.3 % (3-13); PLATELET COUNT 184 10^3/uL (150-450); RED BLOOD COUNT 4.54 10^6/uL (3.72-5.28); RED CELL DISTRIBUTION WIDTH 14.2 % (11.5-14.0); SEGMENTED NEUTROPHILS % (AUTO) 57.6 % (42-78); TOTAL CELLS COUNTED % (AUTO) 100 %; WHITE BLOOD COUNT 6.7 10^3/uL (4.0-10.5)
[2017-06-12 03:38] LABS: ACETAMINOPHEN < 10 ug/mL (10-30); ALANINE AMINOTRANSFERASE 72 U/L (9-52); ALBUMIN 3.8 g/dL (3.5-5.0); ALCOHOL 204 mg/dL (NONE DETECTED); ALKALINE PHOSPHATASE 171 U/L (38-126); ANION GAP 12 (5-19); ASPARTATE AMINO TRANSFERASE 68 U/L (14-36); BILIRUBIN,DIRECT 0.3 mg/dL (0.0-0.4); BILIRUBIN,TOTAL 0.5 mg/dL (0.2-1.3); BLOOD UREA NITROGEN 7 mg/dL (7-20); CALCIUM 9.1 mg/dL (8.4-10.2); CARBON DIOXIDE 25 mmol/L (22-30); CHLORIDE 106 mmol/L (98-107); GLUCOSE 85 mg/dL (75-110); POTASSIUM 3.7 mmol/L (3.6-5.0); SALICYLATE < 1.0 mg/dL (2.0-20.0); TOTAL PROTEIN 6.5 g/dL (6.3-8.2)
[2017-06-12 04:48] LABS: APPEARANCE,URINE CLEAR; BILIRUBIN,URINE NEGATIVE (NEGATIVE); COLOR,URINE STRAW; GLUCOSE, URINE NEGATIVE (NEGATIVE); KETONES,URINE NEGATIVE (NEGATIVE)
[2017-06-12 04:49] LABS: LEUKOCYTE ESTERASE,URINE NEGATIVE (NEGATIVE); NITRITE,URINE NEGATIVE (NEGATIVE); PROTEIN,URINE NEGATIVE (NEGATIVE); URINE SPECIFIC GRAVITY 1.011; UROBILINOGEN,URINE NEGATIVE mg/dL (<2.0)
[2017-06-12 05:06] LABS: URINE AMPHETAMINES SCREEN NEGATIVE; URINE BARBITURATES SCREEN NEGATIVE; URINE BENZODIAZEPINES SCREEN UNCONFIRMED POSITIVE; URINE COCAINE SCREEN UNCONFIRMED POSITIVE; URINE MARIJUANA (THC) SCREEN NEGATIVE; URINE METHADONE SCREEN NEGATIVE; URINE PHENCYCLIDINE SCREEN NEGATIVE
--- NOTE | 2017-06-12 06:44 | ER Document Report ---
ED General - General Chief Complaint: Suicidal Ideation Stated Complaint: INVOLUNTARY SUICIDE Time Seen by Provider: 06/12/17 03:18 Notes: Patient is a 37-year-old female who presents with complaint of suicidal ideations. She does admit to drinking alcohol and taking 1 Valium today. She denies any other drug use. She denies any fevers or infections. Patient will not tell me why she is suicidal or why she is depressed. She has no other complaints at this time. She denies any trauma or injury. TRAVEL OUTSIDE OF THE [place] IN LAST 30 DAYS: No - Related Data Allergies/Adverse Reactions: chlorpromazine HCl [From Thorazine] Adverse Reaction (Unknown, Verified 05:03) haloperidol [From Haldol] Adverse Reaction (Unknown, Verified 06/12/17 05:03) Past Medical History - Social History Smoking Status: Current Every Day Smoker Frequency of alcohol use: None Drug Abuse: Cocaine Family History: Arthritis, DM, Hyperlipidemia, Hypertension Patient has suicidal ideation: Yes Patient has homicidal ideation: No - Past Medical History Cardiac Medical History: Reports: Hx Hypercholesterolemia Pulmonary Medical History: Reports: Hx Asthma, Hx Bronchitis Neurological Medical History: Reports: Hx Migraine Renal/ Medical History: Denies: Hx Peritoneal Dialysis GI Medical History: Reports: Hx Gastroesophageal Reflux Disease Musculoskeltal Medical History: Reports Hx Arthritis Psychiatric Medical History: Reports: Hx Attention Deficit Hyperactivity Disorder, Hx Bipolar Disorder, Hx Depression Past Surgical History: Reports: Hx Tubal Ligation - Immunizations Immunizations up to date: Yes Hx Diphtheria, Pertussis, Tetanus Vaccination: Yes - 2011 Hx Pneumococcal Vaccination: 05/12/12 Review of Systems - Review of Systems Notes: My Normal Review Basic REVIEW OF SYSTEMS: CONSTITUTIONAL : Denies fever, chills, or sweats. Denies recent illness. EENT: Denies eye, ear, throat, or mouth pain or symptoms. Denies nasal or sinus congestion. CARDIOVASCULAR: Denies chest pain. RESPIRATORY: Denies cough, cold, or chest congestion. Denies shortness of breath, difficulty breathing, or wheezing. GASTROINTESTINAL: Denies abdominal pain. Denies nausea, vomiting, or diarrhea. Denies constipation. Last BM: GENITOURINARY: Denies difficulty urinating, painful urination, burning, frequency, or blood in urine. MUSCULOSKELETAL: Denies neck or back pain or joint pain or swelling. SKIN: Denies rash or skin lesions. NEUROLOGICAL: Denies altered mental status or loss of consciousness. Denies headache. Denies weakness or paralysis or loss of use of either side. Denies problems with gait or speech. Denies sensory or motor loss. PSYCHIATRIC: Has depression and suicidal thoughts. ALL OTHER SYSTEMS REVIEWED AND NEGATIVE. Physical Exam - Vital signs Vitals: Temp Pulse Resp BP Pulse Ox 97.9 F 105 H 16 120/88 H 97 06/12/17 02:34 06/12/17 02:34 06/12/17 02:34 06/12/17 02:34 06/12/17 02:34 - Notes Notes: General Appearance: Well nourished, alert, cooperative, no acute distress, no obvious discomfort. Vitals: reviewed, See vital signs table. Head: no swelling or tenderness to the head Eyes: PERRL, EOMI, Conjuctiva clear Mouth: No decreasd moisture Throat: No tonsillar inflammation, No airway obstruction, No lymphadenopathy Neck: Supple, no neck tenderness, No thyromegaly Lungs: Scattered wheezing, No rales, No rhonci, No accessory muscle use, good air exchange bilaterally. Heart: Normal rate, Regular rythm, No murmur, no rub Abdomen: Normal BS, soft, No rigidity, No abdominal tenderness, No guarding, no rebound, no abdominal masses, no organomegaly Extremities: strength 5/5 in all extremities, good pulses in all extremities, no swelling or tenderness in the extremities, no edema. Skin: warm, dry, appropriate color, no rash Neuro: speech clear, oriented x 3, normal affect, responds appropriately to questions. Course - Re-evaluation Re-evalutation: 06/12/17 06:43 Patient is medically stable for psychiatric evaluation and placement. She is seen here frequently. She complains of some thoughts of suicide. We will have psychiatry evaluate the patient due to her claims of being very depressed. Dictation of this chart was performed using voice recognition software; therefore, there may be some unintended grammatical errors. - Vital Signs Vital signs: Temp Pulse Resp BP Pulse Ox 97.9 F 105 H 14 120/88 H 95 06/12/17 02:34 06/12/17 02:34 06/12/17 06:00 06/12/17 02:34 06/12/17 06:00 - Laboratory Result Diagrams: 06/12/17 03:00 06/12/17 03:00 Laboratory results interpreted by me: 06/12/17 06/12/17 03:00 03:00 Hgb 15.6 H MCV 98 H MCH 34.4 H RDW 14.2 H AST 68 H ALT 72 H Alkaline Phosphatase 171 H Salicylates < 1.0 L Acetaminophen < 10 L - EKG Interpretation by Me Additional EKG results interpreted by me: 06/12/17 06:40 EKG is reviewed and interpreted by me. EKG shows sinus rhythm with a rate of [address] segment elevation or depression. No ischemic T-wave inversions. WV interval, QRS duration, QTc intervals are within normal range. No old EKG for comparison is not available at this time. 06/12/17 06:41 Discharge - Discharge Clinical Impression: Alcohol abuse Depression Qualifiers: Depression Type: unspecified Qualified Code(s): F32.9 - Major depressive disorder, single episode, unspecified
[2017-06-12] MEDS ORDERED: DIAZEPAM 5 MG TABLET PO ONE ×2 (08:41→16:00)
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
--- NOTE | 2017-06-12 09:44 | EKG REPORT ---
SEVERITY:- ABNORMAL ECG - SINUS RHYTHM ABNORMAL Q SUGGESTS SEPTAL INFARCT : Confirmed by: Cole Booker 12-Jun-2017 09:43:02
--- NOTE | 2017-06-12 10:06 | ER Document Report ---
Doctor's Note Notes: 06/12/17 10:04 Medical rounds: Chart reviewed and patient interviewed briefly. Vital signs appear to be stable. Labs are unremarkable except for mild elevation of liver enzymes, consistent with patient's ethanol history. On examination, patient is alert, oriented, and cooperative. She says she does not feel well but denies any specific complaints. She is medically stable, pending evaluation and disposition by psych.
[2017-06-12 15:25] VITALS: BP 133/94
== END 2017-06-12 15:25 | disposition home or self-care (01) ==
LOC: ER 02:21
DX: F31.9 Bipolar disorder, unspecified (principal); Z79.899 Other long term (current) drug therapy; T76.11XA Adult physical abuse, suspected, initial encounter; R45.851 Suicidal ideations; F17.200 Nicotine dependence, unspecified, uncomplicated; F14.10 Cocaine abuse, uncomplicated; F10.20 Alcohol dependence, uncomplicated; J45.909 Unspecified asthma, uncomplicated; R74.8 Abnormal levels of other serum enzymes; Z59.6 Low income; Z65.3 Problems related to other legal circumstances
CPT/HCPCS: 93005; 94640; 99285; 36415; 80307 ×4; 84703; 85025; 80053; 81001; 93010; J7620

== ENCOUNTER 2017-07-29 21:17 | Emergency (ER) | payer SELFPAY ==
[2017-07-29] MEDS ORDERED: NORMAL SALINE 1000 ML 1,000 ML IV ONE (21:32)
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
[2017-07-29 22:01] LABS: ABSOLUTE BASOPHILS # (AUTO) 0.1 10^3/uL (0.0-0.2); ABSOLUTE EOSINOPHILS # (AUTO) 0.5 10^3/uL (0.0-0.6); ABSOLUTE LYMPHOCYTES (AUTO) 2.7 10^3/uL (0.5-4.7); ABSOLUTE MONOCYTES (AUTO) 0.6 10^3/uL (0.1-1.4); ABSOLUTE NEUT (AUTO) 2.2 10^3/uL (1.7-8.2); BASOPHILS % (AUTO) 0.9 % (0-2); EOSINOPHILS % (AUTO) 8.5 % (0-6); HEMATOCRIT 40.4 % (36.0-47.0); HEMOGLOBIN 14.1 g/dL (12.0-15.5); LYMPHOCYTES % (AUTO) 44.3 % (13-45); MEAN CORPUSCULAR HEMOGLOBIN 34.5 pg (27.0-33.4); MEAN CORPUSCULAR HGB CONC 34.8 g/dL (32.0-36.0); MEAN CORPUSCULAR VOLUME 99 fl (80-97); MONOCYTES % (AUTO) 9.8 % (3-13); PLATELET COUNT 136 10^3/uL (150-450); RED BLOOD COUNT 4.08 10^6/uL (3.72-5.28); RED CELL DISTRIBUTION WIDTH 13.8 % (11.5-14.0); SEGMENTED NEUTROPHILS % (AUTO) 36.5 % (42-78); TOTAL CELLS COUNTED % (AUTO) 100 %; WHITE BLOOD COUNT 6.1 10^3/uL (4.0-10.5)
[2017-07-29 22:07] LABS: APPEARANCE,URINE CLEAR; BILIRUBIN,URINE NEGATIVE (NEGATIVE); COLOR,URINE YELLOW; GLUCOSE, URINE NEGATIVE (NEGATIVE); KETONES,URINE NEGATIVE (NEGATIVE); LEUKOCYTE ESTERASE,URINE NEGATIVE (NEGATIVE); NITRITE,URINE NEGATIVE (NEGATIVE); PROTEIN,URINE NEGATIVE (NEGATIVE); URINE SPECIFIC GRAVITY 1.003; UROBILINOGEN,URINE NEGATIVE mg/dL (<2.0)
[2017-07-29 22:21] LABS: ALANINE AMINOTRANSFERASE 40 U/L (9-52); ALBUMIN 3.6 g/dL (3.5-5.0); ALCOHOL 244 mg/dL (NONE DETECTED); ALKALINE PHOSPHATASE 84 U/L (38-126); ANION GAP 14 (5-19); ASPARTATE AMINO TRANSFERASE 49 U/L (14-36); BILIRUBIN,DIRECT 0.5 mg/dL (0.0-0.4); BILIRUBIN,TOTAL 0.5 mg/dL (0.2-1.3); BLOOD UREA NITROGEN 8 mg/dL (7-20); CALCIUM 8.5 mg/dL (8.4-10.2); CARBON DIOXIDE 22 mmol/L (22-30); CHLORIDE 112 mmol/L (98-107); GLUCOSE 87 mg/dL (75-110); POTASSIUM 3.7 mmol/L (3.6-5.0); SODIUM 148.2 mmol/L (137-145); TOTAL PROTEIN 6.4 g/dL (6.3-8.2)
[2017-07-29 22:25] LABS: ACETAMINOPHEN < 10 ug/mL (10-30); SALICYLATE < 1.0 mg/dL (2.0-20.0); URINE AMPHETAMINES SCREEN NEGATIVE; URINE BARBITURATES SCREEN NEGATIVE; URINE COCAINE SCREEN NEGATIVE; URINE MARIJUANA (THC) SCREEN NEGATIVE; URINE METHADONE SCREEN NEGATIVE; URINE PHENCYCLIDINE SCREEN NEGATIVE
[2017-07-29 22:38] LABS: URINE BENZODIAZEPINES SCREEN UNCONFIRMED POSITIVE
--- NOTE | 2017-07-30 10:00 | ER Document Report ---
Doctor's Note Notes: 07/30/17 09:59 Medical rounds: Chart reviewed and patient interviewed briefly. Vital signs now appear to have stabilized. Laboratory values are satisfactory. Slight elevation of AST is noted. On examination, patient is alert, oriented, and cooperative. She states she has a history of chronic hepatitis C, which is untreated due to lack of financial resources. She denies any other chronic medical condition. She denies any somatic complaints at present. She is medically stable, pending evaluation and disposition per psych. 07/30/17 10:01
[2017-07-30 11:41] VITALS: BP 108/60
--- NOTE | 2017-07-30 16:19 | EKG REPORT ---
SEVERITY:- BORDERLINE ECG - SINUS RHYTHM BORDERLINE PROLONGED QT INTERVAL : Confirmed by: Cole Booker 30-Jul-2017 16:18:23
--- NOTE | 2017-07-31 22:31 | PSYCHOLOGICAL NOTE ---
Psych Note - Psych Note Psych Note: Reason for evaluation: Suicidal ideation Contact Permissions: Patient's boyfriend Stanislaw Benton [phone]; Patient's friend Gray Clay Jr. [phone] Patient is a 37 year old female. Patient reports she was drinking liquior last night and usually only sticks to beer. Patient reports liquior is what makes her "go crazy" and make suicidal comments. Patient reports she does not remember making suicidal comments but does remember when the "law got there " because they stated they were arresting her boyfriend because he had a warrant out for her arrest. Patient reports that when she saw he was getting arrested she " must have" made suicidal comments. Patient reports she does not feel like hurt or harming herself, and is not having suicidal thoughts. Patient reports she is just worried about her boyfriend being in [facility]. patient reports her friends can come pick her up . Patient reports she has an appointment with [facility] 08/01 and states she is now going monthly just for medication management. Patient reports she was doing good not drinking alcohol because she was worried about her health, but relapsed back into drinking. Patient reports she will call [facility] mobile crisis management when she discharges for detox after she checks on her boyfriend. Patient reports if she doesn't go to detox she will talk about her substance use at [facility] on the . Patient reports she thought it was funny that this time she doesn't remember anything she said. Patient reports things have actually gotten better since the last time she was in the hospital for suicidal ideation. Patient reports aside from her boyfriend possibly being arrested, things are going real good. Collateral information: Gray Clay Jr. Patient's friend reports he will come last picker patient and assist her in going to her appointment on the . Patient's friend reports he has no other concerns for patient. Patient's friend reports he was sharing a car with his dad so it may be awhile before he gets to the hospital. Medication recommendation made by [facility] contracted psychiatric provider Dr. Nithin MD. includes: NONE Diagnosis: 303.90 ( F 10.20) Alcohol use disorder ;severe Impression/Plan: Recommendation to rescind involuntary commitment due to patient not meeting criteria [place] GS 122C. Patient denied SI/HI and is not responding to internal stimuli. Clinician observed patient has appropriate affect, cooperative, and is laughing making jokes with clinician. Clinician observed patient's affect has improved since last evaluation clinician conducted previously. Clinician observed patient has an appointment scheduled with [facility], and has been following previous recommendations regarding seeing a provider. Clinician provided education regarding alcohol use disorder, and recommended to patient for detox. Clinician provided resources to patient and explained integrative family services role and services they offer, circling their information. Clinician coordinated with patient's friend Gray who stated he had no concerns regarding patient and agreed to be the person patient was discharged to. Gray transported patient, and agreed to transport her to her appointment to [facility] 08/01. Attending physician in agreement with plan and disposition. Consulted with Dr. Pink regarding the management and care of patient.
== END 2017-07-30 11:41 | disposition home or self-care (01) ==
LOC: ER 21:17
DX: R45.851 Suicidal ideations (principal); F10.129 Alcohol abuse with intoxication, unspecified; I95.9 Hypotension, unspecified; R09.02 Hypoxemia; R23.0 Cyanosis; R45.6 Violent behavior; R45.1 Restlessness and agitation; S60.511A Abrasion of right hand, initial encounter; X58.XXXA Exposure to other specified factors, initial encounter; B18.2 Chronic viral hepatitis C; J45.909 Unspecified asthma, uncomplicated
CPT/HCPCS: 93005; 99284; 96360; 36415; 80307 ×4; 84703; 85025; 80053; 81001; 93010; J7030

== ENCOUNTER 2017-10-10 21:45 | Emergency (ER) | payer SELFPAY ==
--- NOTE | 2017-10-11 00:02 | ER Document Report ---
ED General - General Chief Complaint: Abdominal Pain Stated Complaint: STOMACH PAIN Time Seen by Provider: 10/10/17 23:54 Mode of Arrival: Ambulatory Information source: Patient Notes: 37-year-old female with remote alcohol abuse, remote prescription drug abuse, hyperlipidemia, reflux, chronic low back pain, bipolar disorder presents with complaint of abdominal discomfort, constipation, urinary retention. Patient states that she has not had a bowel movement in 7 days. Patient states that she took an enema without results. She states that she was unable to urinate until she inserted her hand into her vagina pushing up onto her bladder and then was able to urinate. She denies prior similar symptoms. She does state that she started Subutex 1 week ago for her opiate abuse she is on Adderall chronically. She denies any other changes or new medications. TRAVEL OUTSIDE OF THE [place] IN LAST 30 DAYS: No - Related Data Allergies/Adverse Reactions: chlorpromazine HCl [From Thorazine] Adverse Reaction (Unknown, Verified 07:39) haloperidol [From Haldol] Adverse Reaction (Unknown, Verified 07/30/17 07:39) Past Medical History - General Information source: Patient, [facility] Records - Social History Smoking Status: Current Every Day Smoker Cigarette use (# per day): Yes - 15 Smoking Education Provided: Yes - 4 minutes of smoking cessation provided Frequency of alcohol use: Occasional Drug Abuse: Prescription drugs Lives with: Alone Family History: Arthritis, DM, Hyperlipidemia, Hypertension Patient has suicidal ideation: No Patient has homicidal ideation: No - Past Medical History Cardiac Medical History: Reports: Hx Hypercholesterolemia Pulmonary Medical History: Reports: Hx Asthma, Hx Bronchitis Neurological Medical History: Reports: Hx Migraine Renal/ Medical History: Denies: Hx Peritoneal Dialysis GI Medical History: Reports: Hx Gastroesophageal Reflux Disease Musculoskeletal Medical History: Reports Hx Arthritis Psychiatric Medical History: Reports: Hx Attention Deficit Hyperactivity Disorder, Hx Bipolar Disorder, Hx Depression Past Surgical History: Reports: Hx Tubal Ligation - Immunizations Immunizations up to date: Yes Hx Diphtheria, Pertussis, Tetanus Vaccination: Yes - 2011 Hx Pneumococcal Vaccination: 05/12/12 Review of Systems - Review of Systems Notes: REVIEW OF SYSTEMS: CONSTITUTIONAL : Denies fever, chills, or sweats. Denies recent illness. Denies weight loss, recent hospitalizations. EENT: Denies visual changes, eye pain. Denies nasal or sinus congestion or discharge. Denies sore throat, oral lesions, difficulty swallowing. CARDIOVASCULAR: Denies chest pain. Denies palpitations. Denies lower extremity edema. RESPIRATORY: Denies cough, cold, or chest congestion. Denies shortness of breath, wheezing. GASTROINTESTINAL: Denies abdominal distention. Denies nausea, vomiting, or diarrhea. Denies blood in vomitus, stools, or per rectum. Denies black, tarry stools. GENITOURINARY: Denies painful urination, frequency, blood in urine, or vaginal discharge. MUSCULOSKELETAL: Denies back or neck pain or stiffness. Denies joint pain or swelling. SKIN: Denies rash, lesions or sores. HEMATOLOGIC : Denies easy bruising or bleeding. LYMPHATIC: Denies swollen glands. NEUROLOGICAL: Denies confusion or altered mental status. Denies passing out or loss of consciousness. Denies dizziness or lightheadedness. Denies headache. Denies weakness or paralysis. Denies problems difficulty with ambulation, slurred speech. Denies sensory loss, numbness, or tingling. Denies seizures. PSYCHIATRIC: Denies anxiety or stress. Denies depression, suicidal ideation, or homicidal ideation. Denies visual or auditory hallucinations. Physical Exam - Vital signs Vitals: Temp Pulse Resp BP Pulse Ox 98.8 F 107 H 18 103/76 96 10/10/17 23:11 10/10/17 23:11 10/10/17 23:11 10/10/17 23:11 10/10/17 23:11 Course - Re-evaluation Re-evalutation: Laboratory 10/11/17 10/11/17 00:53 00:53 Urine Color YELLOW Urine Appearance SLIGHTLY-CLOUDY Urine pH 5.0 Ur Specific [place] 1.014 Urine Protein NEGATIVE Urine Glucose (UA) NEGATIVE Urine Ketones NEGATIVE Urine Blood NEGATIVE Urine Nitrite NEGATIVE Urine Bilirubin NEGATIVE Urine Urobilinogen 2.0 H Ur Leukocyte Esterase TRACE H Urine WBC (Auto) 16 Urine RBC (Auto) 1 U Hyaline Cast (Auto) 3 Squamous Epi Cells Auto 2 Urine Mucus (Auto) MOD Urine Ascorbic Acid NEGATIVE Urine HCG, Qual NEGATIVE Urine Opiates Screen NEGATIVE Urine Methadone Screen NEGATIVE Ur Barbiturates Screen NEGATIVE Ur Phencyclidine Scrn NEGATIVE Ur Amphetamines Screen UNCONFIRMED POSITIVE U Benzodiazepines Scrn NEGATIVE Urine Cocaine Screen NEGATIVE U Marijuana (THC) Screen NEGATIVE Acute Abdomen Series 10/11/17 00:02 IMPRESSION: No acute findings. 10/11/17 03:05 37-year-old female with remote alcohol abuse, remote prescription drug abuse, hyperlipidemia, reflux, chronic low back pain, bipolar disorder presents with complaint of abdominal discomfort, constipation, urinary retention. Patient states that she has not had a bowel movement in 7 days. Patient states that she took an enema without results. She states that she was unable to urinate until she inserted her hand into her vagina pushing up onto her bladder and then was able to urinate. She denies prior similar symptoms. She does state that she started Subutex 1 week ago for her opiate abuse she is on Adderall chronically. She denies any other changes or new medications. Upon arrival vitals reviewed and within normal limits. Patient does not appear toxic or dehydrated. She is in no acute distress. I did attempt to disimpact the patient but was unable to do this successfully. Acute abdominal series showed no evidence of obstruction. Patient did receive milk of magnesia, mineral oil enema. She would like to go home and try to use the restroom and privacy. Urinalysis consistent with urinary tract infection. Patient will be given Keflex for this. Patient provided the opportunity to ask questions, and express concerns. Discharge instructions discussed. Patient is agreeable with discharge home. Return indications explained and discussed with the patient who displays understanding. Patient encouraged to return to the emergency department immediately with any concerns. - Vital Signs Vital signs: Temp Pulse Resp BP Pulse Ox 98.9 F 99 17 115/73 97 10/11/17 02:53 10/11/17 02:53 10/11/17 02:53 10/11/17 02:53 10/11/17 02:53 - Laboratory Laboratory results interpreted by me: 10/11/17 00:53 Urine Urobilinogen 2.0 H Ur Leukocyte Esterase TRACE H - Diagnostic Test Radiology reviewed: Image reviewed, Reports reviewed Discharge - Discharge Clinical Impression: History of prescription drug abuse UTI (urinary tract infection) Qualifiers: Urinary tract infection type: site unspecified Hematuria presence: without hematuria Qualified Code(s): N39.0 - Urinary tract infection, site not specified Constipation Qualifiers: Constipation type: unspecified constipation type Qualified Code(s): K59.00 - Constipation, unspecified Condition: Good Disposition: HOME, SELF-CARE Instructions: Constipation ([facility]), Urinary Tract Infection ([facility]) Additional Instructions: Follow up with your physician tomorrow for further care or return to the ED IMMEDIATELY if symptoms worsen or new concerns occur. If you cannot afford to follow up with your primary care physician a list of low cost clinics have been provided at the end of your discharge papers as well. Prescriptions: Cephalexin Monohydrate [Keflex 500 mg Capsule] 500 mg PO BID 5 Days #14 capsule Docusate Sodium [Colace 100 mg Capsule] 100 mg PO DAILY 14 Days #14 capsule Polyethylene Glycol 3350 [Miralax Powder 17 gm/Packet] 1 packet PO DAILY #1 pkg Referrals: MARNI JORGE MD [Primary Care Provider] - Follow up in 3-5 days
[2017-10-11] MEDS ORDERED: LIDOCAINE 2% URO-JET 5 ML KIT MM ONE (00:03)
[2017-10-11] MEDS ORDERED: MINERAL OIL ENEMA 133 ML PR ONE (01:09)
[2017-10-11] MEDS ORDERED: MAGNESIUM HYDROXIDE SUSP 30 ML UDCUP PO ONE (01:09)
[2017-10-11 01:13] LABS: APPEARANCE,URINE SLIGHTLY-CLOUDY; BILIRUBIN,URINE NEGATIVE (NEGATIVE); COLOR,URINE YELLOW; GLUCOSE, URINE NEGATIVE (NEGATIVE); KETONES,URINE NEGATIVE (NEGATIVE); LEUKOCYTE ESTERASE,URINE TRACE (NEGATIVE); NITRITE,URINE NEGATIVE (NEGATIVE); PROTEIN,URINE NEGATIVE (NEGATIVE); URINE SPECIFIC GRAVITY 1.014
[2017-10-11 01:37] LABS: URINE AMPHETAMINES SCREEN UNCONFIRMED POSITIVE; URINE BARBITURATES SCREEN NEGATIVE; URINE BENZODIAZEPINES SCREEN NEGATIVE; URINE COCAINE SCREEN NEGATIVE; URINE MARIJUANA (THC) SCREEN NEGATIVE; URINE METHADONE SCREEN NEGATIVE; URINE PHENCYCLIDINE SCREEN NEGATIVE
--- NOTE | 2017-10-11 01:40 | RADIOLOGY REPORT (SQ) ---
EXAM DESCRIPTION: US ABDOMEN ANEURYSM SCREENING COMPLETED DATE/TME: 10/11/2017 00:02 CLINICAL HISTORY: 37 years Female, no bm 7 days COMPARISON: None. NUMBER OF VIEWS/TECHNIQUE: 3 LIMITATIONS: None. FINDINGS: Intestinal gas pattern is within normal limits. Paucity of bowel gas consistent with stool retention throughout the large bowel. No suspicious calcification. Grossly intact skeletal structures. No acute cardiopulmonary findings. IMPRESSION: No acute findings.
[2017-10-11] MEDS ORDERED: CEPHALEXIN 500 MG CAPSULE PO ONE (02:28)
[2017-10-11 02:56] VITALS: BP 115/73
== END 2017-10-11 03:02 | disposition home or self-care (01) ==
LOC: ER 21:45
DX: N39.0 Urinary tract infection, site not specified (principal); K59.00 Constipation, unspecified; R10.9 Unspecified abdominal pain; F17.210 Nicotine dependence, cigarettes, uncomplicated; E78.00 Pure hypercholesterolemia, unspecified; Z98.51 Tubal ligation status
CPT/HCPCS: 99284; 81025; 81001; 80307; 74022; J3490 ×3

== ENCOUNTER 2018-06-07 10:28 | Emergency (ER) | payer SELFPAY ==
[2018-06-07 10:38] VITALS: BP 104/90
[2018-06-07] MEDS ORDERED: ACETAMINOPHEN 325 MG TABLET PO ONE (10:58)
[2018-06-07] MEDS ORDERED: IBUPROFEN 600 MG TABLET PO ONE (10:58)
--- NOTE | 2018-06-07 11:35 | ER Document Report ---
HPI - HPI Time Seen by Provider: 06/07/18 10:51 Pain Level: 3 Notes: Patient is a 37-year-old female who presents to the emergency department with complaints of right foot and ankle pain. Patient reports that 2 weeks ago she fell and twisted her foot into a hole in the ground. Patient reports she did not seek treatment at that time. Patient reports worsening pain and swelling. Patient states she is unable to ambulate properly on the foot. - REPRODUCTIVE Reproductive: DENIES: : - MUSCULOSKELETAL Musculoskeletal: REPORTS: Extremity pain - R ankle and foot Past Medical History - General Information source: Patient - Social History Smoking Status: Current Every Day Smoker Frequency of alcohol use: None Drug Abuse: None Family History: Arthritis, DM, Hyperlipidemia, Hypertension Patient has suicidal ideation: No Patient has homicidal ideation: No - Past Medical History Cardiac Medical History: Reports: Hx Hypercholesterolemia Pulmonary Medical History: Reports: Hx Asthma, Hx Bronchitis Neurological Medical History: Reports: Hx Migraine Renal/ Medical History: Denies: Hx Peritoneal Dialysis GI Medical History: Reports: Hx Gastroesophageal Reflux Disease Musculoskeletal Medical History: Reports Hx Arthritis Psychiatric Medical History: Reports: Hx Attention Deficit Hyperactivity Disorder, Hx Bipolar Disorder, Hx Depression Past Surgical History: Reports: Hx Tubal Ligation - Immunizations Immunizations up to date: Yes Hx Diphtheria, Pertussis, Tetanus Vaccination: Yes - 2011 Hx Pneumococcal Vaccination: 05/12/12 Vertical Provider Document - CONSTITUTIONAL Notes: PHYSICAL EXAMINATION: GENERAL: Well-appearing, well-nourished and in no acute distress. HEAD: Atraumatic, normocephalic. EYES: Pupils equal round extraocular movements intact, conjunctiva are normal. ENT: Nares patent NECK: Normal range of motion LUNGS: No respiratory distress Musculoskeletal: Normal range of motion, swelling and ecchymosis noted from dorsal surface of foot down to second third and fourth toes. Cap refill less than 3 seconds, normal sensation distal to area of injury. Pain with any manipulation. NEUROLOGICAL: Normal speech. PSYCH: Normal mood, normal affect. SKIN: Warm, Dry, normal turgor, no rashes or lesions noted. - INFECTION CONTROL TRAVEL OUTSIDE OF THE [place] IN LAST 30 DAYS: No Course - Re-evaluation Re-evalutation: X-ray shows a transverse minimally comminuted intra-articular fracture through the base of the fifth metatarsal, no other findings noted in the foot or ankle. Patient will be placed in a posterior short ankle splint and placed on crutches. Follow-up with orthopedics. - Vital Signs Vital signs: Temp Pulse Resp BP Pulse Ox 98.1 F 102 H 18 104/90 H 98 06/07/18 10:35 06/07/18 10:35 06/07/18 10:35 06/07/18 10:35 06/07/18 10:35 Procedures - Immobilization Right foot Pre-Proc Neuro Vasc Exam: Normal Immobilizer type: Crutches, Short Leg Posterior Performed by: PCT Post-Proc Neuro Vasc Exam: Normal Alignment checked and good: Yes Discharge - Discharge Clinical Impression: Metatarsal stress fracture of right foot Qualifiers: Encounter type: initial encounter Qualified Code(s): M84.374A - Stress fracture, right foot, initial encounter for fracture Condition: Stable Disposition: HOME, SELF-CARE Additional Instructions: Fracture You have a fracture. The typical broken bone requires only protection and sufficient time for healing. "Setting" is necessary only if the bones are crooked or out of position. The physician will re-assess you periodically to make certain that the bone heals without complications. It's important that you follow the instructions given you. The initial treatment is immobilization, elevation of the injury, and cold packs. Not all fractures require a cast. Depending on the location and type of fracture, immobilization may consist of a splint, cast, sling, bulky dressing, or simply rest. The length of time required for healing depends on the location and type of fracture, and on the age of the patient. The treatment plan the physician has outlined for you is customized to your fracture and health condition. Call the doctor or return at once if pain becomes severe, or if severe swelling or numbness develop. You have a fracture in the bone of your foot. Please keep the splint in place until seen by orthopedics. Call them tomorrow to schedule an appointment. Ice, elevate and take ibuprofen 600 mg every 6 hours for pain and inflammation. Referrals: EDINSON CAPELLAN MD [ACTIVE STAFF] - Follow up as needed
--- NOTE | 2018-06-07 11:53 | RADIOLOGY REPORT (SQ) ---
EXAM DESCRIPTION: FOOT RIGHT COMPLETE; ANKLE RIGHT COMPLETE COMPLETED DATE/TIME: 06/07/2018 11:44 am REASON FOR STUDY: fall x2 weeks ago, pain/swelling COMPARISON: None. FINDINGS: Three views right ankle: Slight lateral soft tissue swelling. No fracture about the ankl e. See foot radiographs below. Mortise maintained. No ankle joint effusion. Three views right foot: Transverse minimally comminuted intra-articular fracture through the base of the 5th metatarsal. Foot bones otherwise intact. Mild dorsal soft tissue swelling. TECHNICAL DOCUMENTATION: JOB ID: [id number] Reading location - IP/workstation name: [email or web address]
--- NOTE | 2018-06-07 11:53 | RADIOLOGY REPORT (SQ) ---
EXAM DESCRIPTION: FOOT RIGHT COMPLETE; ANKLE RIGHT COMPLETE COMPLETED DATE/TIME: 06/07/2018 11:44 am REASON FOR STUDY: fall x2 weeks ago, pain/swelling COMPARISON: None. FINDINGS: Three views right ankle: Slight lateral soft tissue swelling. No fracture about the ankl e. See foot radiographs below. Mortise maintained. No ankle joint effusion. Three views right foot: Transverse minimally comminuted intra-articular fracture through the base of the 5th metatarsal. Foot bones otherwise intact. Mild dorsal soft tissue swelling. TECHNICAL DOCUMENTATION: JOB ID: [id number] Reading location - IP/workstation name: [email or web address]
== END 2018-06-07 12:58 | disposition home or self-care (01) ==
LOC: ER 10:28
PROC: 2W3QX1Z Immobilization of Right Lower Leg using Splint (ICD-10-PCS; principal; 2018-06-07)
DX: M84.374A Stress fracture, right foot, initial encounter for fracture (principal); M79.671 Pain in right foot; M25.571 Pain in right ankle and joints of right foot; X50.1XXA Overexertion from prolonged static or awkward postures, initial encounter; F17.200 Nicotine dependence, unspecified, uncomplicated; J45.909 Unspecified asthma, uncomplicated
CPT/HCPCS: 99283

== ENCOUNTER 2018-07-08 22:12 | Emergency (ER) | payer SELFPAY ==
[2018-07-08] MEDS ORDERED: NALOXONE HCL INJ/PF 0.4 MG/1 ML SDV IV ONE (22:24)
[2018-07-08] MEDS ORDERED: NORMAL SALINE 1000 ML 1,000 ML IV ONE (22:30)
--- NOTE | 2018-07-08 22:32 | ER Document Report ---
ED General - General TRAVEL OUTSIDE OF THE [place] IN LAST 30 DAYS: No <ANDREW SUAREZ - Last Filed: 07/09/18 06:04> <HILARY BO - Last Filed: 07/09/18 11:20> - General Stated Complaint: ALTERED MENTAL STATUS Time Seen by Provider: 07/08/18 22:18 Primary Care Provider: LUIS COVARRUBIAS MD [NO LOCAL MD] - Follow up in 3-5 days Notes: Patient is a 38-year-old female is brought in by EMS after being found poorly responsive. Apparently her boyfriend was tongue turning phone and knows that she was slurring her words and not acting right. Therefore contacted the police who found her poorly responsive. Paramedics arrived and she could mumble some things but was not given the medical history. The way here she became more poorly responsive. Upon arrival she will not answer my questions were talk to me. She will open her eyes slightly. She will will slightly move her extremities. She is somnolent. No further history is obtainable from her at this time. She does have a history of alcohol abuse and drug abuse. (ANDREW SUAREZ) - Related Data Allergies/Adverse Reactions: chlorpromazine HCl [From Thorazine] Adverse Reaction (Unknown, Verified 06/07/18 10:29) haloperidol [From Haldol] Adverse Reaction (Unknown, Verified 06/07/18 10:29) Past Medical History - Social History Smoking Status: Unknown if Ever Smoked Frequency of alcohol use: Heavy Drug Abuse: Cocaine Family History: Arthritis, DM, Hyperlipidemia, Hypertension - Past Medical History Cardiac Medical History: Reports: Hx Hypercholesterolemia Pulmonary Medical History: Reports: Hx Asthma, Hx Bronchitis Neurological Medical History: Reports: Hx Migraine Renal/ Medical History: Denies: Hx Peritoneal Dialysis GI Medical History: Reports: Hx Gastroesophageal Reflux Disease Musculoskeletal Medical History: Reports Hx Arthritis Psychiatric Medical History: Reports: Hx Attention Deficit Hyperactivity Disorder, Hx Bipolar Disorder, Hx Depression Past Surgical History: Reports: Hx Tubal Ligation - Immunizations Immunizations up to date: Yes Hx Diphtheria, Pertussis, Tetanus Vaccination: Yes - 2011 Hx Pneumococcal Vaccination: 05/12/12 <ANDREW SUAREZ - Last Filed: 07/09/18 06:04> Review of Systems - Review of Systems -: Yes ROS unobtainable due to patient's medical condition - Patient is somnolent and altered. <ANDREW SUAREZ - Last Filed: 07/09/18 06:04> Physical Exam <ANDREW SUAREZ - Last Filed: 07/09/18 06:04> - Vital signs Vitals: Temp Resp BP Pulse Ox 97.7 F 18 114/73 94 07/08/18 22:17 07/08/18 22:17 07/08/18 22:17 07/08/18 22:17 - Notes Notes: General Appearance: Somnolent. Patient can barely open her eyes. She will not answer questions. Vitals: reviewed, See vital signs table. Head: no swelling or tenderness to the head Eyes: Pupils are small but reactive and equal. Mouth: No decreasd moisture Neck: Supple, no neck tenderness Lungs: No wheezing, No rales, No rhonci, No accessory muscle use, good air exchange bilaterally. Heart: Normal rate, Regular rythm, No murmur, no rub Abdomen: Normal BS, soft, No rigidity, No abdominal tenderness, No guarding, no rebound Extremities: good pulses in all extremities, no swelling or tenderness in the extremities, no edema. Skin: warm, dry, appropriate color, no rash Neuro: Patient is somnolent and appears to be under the influence of alcohol and possibly some other substance. She will occasionally move her extremities on her own but will not follow commands. She will not answer my questions or talk at this time. (ANDREW SUAREZ) Course - Laboratory Result Diagrams: 07/08/18 22:25 07/08/18 22:25 <ANDREW SUAREZ - Last Filed: 07/09/18 06:04> - Laboratory Result Diagrams: 07/08/18 22:25 07/08/18 22:25 <HILARY BO - Last Filed: 07/09/18 11:20> - Re-evaluation Re-evalutation: 07/08/18 22:31 She will not open her eyes or talk to me when I was in the room earlier. I then told the nurse to get some Narcan. Patient then awoke some analysis that she wants to leave. I informed her that we cannot let her leave as she is still going in and out of consciousness and obviously cannot make good decisions on her own and is always still intoxicated from either alcohol, drugs, or combination thereof. Patient is complaining that her right foot hurts. She broke her foot 3 weeks ago. She went to orthopedist who wanted to place a cast on but she refused. She is just using crutches but she is not using them. She feels to be wearing a walking boot but she is not using that either. We will also re-x-ray her foot and continue to monitor her until she is sober. 07/08/18 23:29 Patient is trying to get out of the bed. She is yelling and screaming and saying that she wants to leave. Despite her yelling at staff she still unable to fully open her eyes and is staggering in bed and words are slurred. And i nformed her that her alcohol level is 285 and that she is obviously not clinically sober enough I cannot say for letter relief. Even if she were to get out may get out of bed I do not think she will stand and walk as she is staggering and falling over when she sits up. Patient then argues with me that last time she was here she left with alcohol level 45. She says that that is higher than what she is now. I informed her that her alcohol level is 285 and therefore 45 is much lower. She continues to argue with me about this point which further indicates the patient is obviously not sober enough to make her own decisions and that she cannot realize that 285 is a higher number than 45. Patient therefore given medications to help sedate and restrained. Patient will be kept on the drier. IVC papers filled out to keep her here until she can demonstrate that she is no linger a danger to herself. 07/08/18 23:39 07/09/18 02:12 Patient is currently sleeping and out of restraints, vital signs are stable. Will continue to monitor until patient awakens. 07/09/18 06:04 Patient continues to be resting comfortably and sleeping. I did just tried to wake her up however the the patient was only able to partially wake up and will not fully wake up enough for me to test her gait. We will let her rest little bit longer. Once patient is awake and sober she will be discharged home. (ANDREW SUAREZ) 07/09/18 11:14 Patient rechecked, a week, states that she is having trouble breathing but when asked how long it has been going she says that she started smoking cigarettes. When I examined her her lungs do have some trace expiratory wheezing so she will be given an inhaler. She is mildly tachycardic and has a slight tremor. Has to be getting signs of alcohol withdrawal. She does want to quit drinking but does not want to go anywhere. Patient will be given outpatient resources, treated with a milligram of Ativan IV and prescribed Librium as an outpatient. IVC is being rescinded. Discharged home. (HILARY BO) - Vital Signs Vital signs: Temp Pulse Resp BP Pulse Ox 97 F L 17 121/93 H 93 07/09/18 06:31 07/09/18 10:09 07/09/18 10:01 07/09/18 10:09 - Laboratory Laboratory results interpreted by me: 07/08/18 07/08/18 07/08/18 22:25 22:25 22:46 Hgb 16.3 H MCV 99 H MCH 35.4 H Sodium 145.2 H Chloride 108 H Carbon Dioxide 21 L Glucose 114 H Direct Bilirubin 0.5 H AST 207 H ALT 112 H Alkaline Phosphatase 155 H Ur Leukocyte Esterase SMALL H Salicylates < 1.0 L Acetaminophen < 10 L Discharge <ANDREW SUAREZ - Last Filed: 07/09/18 06:04> <HILARY BO - Last Filed: 07/09/18 11:20> - Discharge Clinical Impression: Alcohol abuse, Cocaine abuse Alcohol withdrawal Qualifiers: Complication of substance-induced condition: uncomplicated Qualified Code(s): F10.230 - Alcohol dependence with withdrawal, uncomplicated Condition: Stable Disposition: HOME, SELF-CARE Additional Instructions: Please avoid use of large amounts of alcohol and avoid use of any amount of cocaine. This can cause you to become confused and unwell. Cocaine and alcohol use can also lead to and injury. Please return to the ER if you have thoughts of suicide, severe depression, or feel unwell in any way. Take the Librium as directed to prevent alcohol withdrawal. If you start drinking stop taking the Librium. Prescriptions: Chlordiazepoxide HCl [Librium 25 mg Capsule] 1 cap PO ASDIR PRN #34 capsule PRN Reason: Referrals: LUIS COVARRUBIAS MD [NO LOCAL MD] - Follow up in 3-5 days
[2018-07-08 22:35] LABS: ABSOLUTE EOSINOPHILS # (AUTO) 0.1 10^3/uL (0.0-0.6); ABSOLUTE LYMPHOCYTES (AUTO) 2.3 10^3/uL (0.5-4.7); ABSOLUTE MONOCYTES (AUTO) 0.9 10^3/uL (0.1-1.4); ABSOLUTE NEUT (AUTO) 3.6 10^3/uL (1.7-8.2); BASOPHILS % (AUTO) 0.6 % (0-2); EOSINOPHILS % (AUTO) 1.2 % (0-6); HEMATOCRIT 45.4 % (36.0-47.0); HEMOGLOBIN 16.3 g/dL (12.0-15.5); LYMPHOCYTES % (AUTO) 33.7 % (13-45); MEAN CORPUSCULAR HEMOGLOBIN 35.4 pg (27.0-33.4); MEAN CORPUSCULAR HGB CONC 35.8 g/dL (32.0-36.0); MEAN CORPUSCULAR VOLUME 99 fl (80-97); MONOCYTES % (AUTO) 12.9 % (3-13); PLATELET COUNT 208 10^3/uL (150-450); RED CELL DISTRIBUTION WIDTH 12.4 % (11.5-14.0); SEGMENTED NEUTROPHILS % (AUTO) 51.6 % (42-78); TOTAL CELLS COUNTED % (AUTO) 100 %; WHITE BLOOD COUNT 6.9 10^3/uL (4.0-10.5)
[2018-07-08 22:57] LABS: ACETAMINOPHEN < 10 ug/mL (10-30); ALANINE AMINOTRANSFERASE 112 U/L (9-52); ALCOHOL 285 mg/dL (NONE DETECTED); ALKALINE PHOSPHATASE 155 U/L (38-126); ANION GAP 16 (5-19); ASPARTATE AMINO TRANSFERASE 207 U/L (14-36); BILIRUBIN,DIRECT 0.5 mg/dL (0.0-0.4); BILIRUBIN,TOTAL 0.8 mg/dL (0.2-1.3); BLOOD UREA NITROGEN 10 mg/dL (7-20); CALCIUM 9.9 mg/dL (8.4-10.2); CARBON DIOXIDE 21 mmol/L (22-30); CHLORIDE 108 mmol/L (98-107); GLUCOSE 114 mg/dL (75-110); POTASSIUM 3.7 mmol/L (3.6-5.0); SALICYLATE < 1.0 mg/dL (2.0-20.0); SODIUM 145.2 mmol/L (137-145); TOTAL PROTEIN 7.4 g/dL (6.3-8.2)
[2018-07-08 23:06] LABS: APPEARANCE,URINE SLIGHTLY-CLOUDY; BILIRUBIN,URINE NEGATIVE (NEGATIVE); COLOR,URINE YELLOW; GLUCOSE, URINE NEGATIVE (NEGATIVE); KETONES,URINE NEGATIVE (NEGATIVE); LEUKOCYTE ESTERASE,URINE SMALL (NEGATIVE); NITRITE,URINE NEGATIVE (NEGATIVE); PROTEIN,URINE NEGATIVE (NEGATIVE); URINE SPECIFIC GRAVITY 1.004; UROBILINOGEN,URINE NEGATIVE mg/dL (<2.0)
[2018-07-08 23:19] LABS: URINE AMPHETAMINES SCREEN NEGATIVE; URINE BARBITURATES SCREEN NEGATIVE; URINE BENZODIAZEPINES SCREEN NEGATIVE; URINE COCAINE SCREEN UNCONFIRMED POSITIVE; URINE MARIJUANA (THC) SCREEN NEGATIVE; URINE METHADONE SCREEN NEGATIVE; URINE PHENCYCLIDINE SCREEN NEGATIVE
[2018-07-08] MEDS ORDERED: HALOPERIDOL LACTATE INJ 5 MG/1 ML VIAL ONE (23:25)
[2018-07-08] MEDS ORDERED: LORAZEPAM INJ 2 MG/1 ML VIAL IM ONE (23:28)
[2018-07-08] MEDS ORDERED: HALOPERIDOL LACTATE INJ 5 MG/1 ML VIAL IM ONE (23:29)
[2018-07-08] MEDS ORDERED: LORAZEPAM INJ 2 MG/1 ML VIAL ONE (23:29)
--- NOTE | 2018-07-08 23:39 | RADIOLOGY REPORT (SQ) ---
EXAM DESCRIPTION: XR FOOT 3 OR MORE VIEWS COMPLETED DATE/TME: 07/08/2018 22:32 CLINICAL HISTORY: 38 years, Female, remote foot fracture COMPARISON: Prior study from 06/07/2018 NUMBER OF VIEWS: Three TECHNIQUE: Frontal, oblique, and lateral radiographs of the right foot were obtained. LIMITATIONS: None. FINDINGS: Visualized is focal deformity involving the fifth metatarsal base, demonstrating callus formation. No additional osseous anomalies are appreciated. IMPRESSION: Healing fracture involving the fifth metatarsal base. copyright 2010 [email or web address]- All Rights Reserved
[2018-07-09] MEDS ORDERED: LORAZEPAM INJ 2 MG/1 ML VIAL IV ONE (11:14)
[2018-07-09] MEDS ORDERED: LORAZEPAM INJ 2 MG/1 ML VIAL IM ONE (11:17)
[2018-07-09] MEDS ORDERED: ALBUTEROL SULFATE HFA (90 MCG/PUFF) 8 GM MDI (1 MDI/ER DISP) IH ONE (11:19)
[2018-07-09 11:49] VITALS: BP 109/75
--- NOTE | 2018-07-11 23:08 | EKG REPORT ---
SEVERITY:- NORMAL ECG - SINUS RHYTHM : Confirmed by: Cole Booker 11-Jul-2018 23:07:50
== END 2018-07-09 11:56 | disposition home or self-care (01) ==
LOC: EEVIPCON 22:12 → ER 22:12
DX: F10.230 Alcohol dependence with withdrawal, uncomplicated (principal); F14.10 Cocaine abuse, uncomplicated; R41.82 Altered mental status, unspecified
CPT/HCPCS: 99285; 96372; 96361; 96374; 36415; 80307 ×4; 84703; 85025; 80053; 81001; 73630; J1630; J2060 ×2; J7030; J3490; 93005; 93010

== ENCOUNTER 2018-08-03 21:56 | Emergency (ER) | payer MEDICAID ==
--- NOTE | 2018-08-03 22:06 | ER Document Report ---
Addendum entered and electronically signed by AMY NASCIMENTO MD 08/04/18 11:57: Discharge - Discharge Clinical Impression: Suicide attempt Polysubstance overdose Qualifiers: Encounter type: initial encounter Injury intent: intentional self-harm Qualified Code(s): T50.902A - Poisoning by unspecified drugs, medicaments and biological substances, intentional self-harm, initial encounter Altered mental status Qualifiers: Altered mental status type: stupor Qualified Code(s): R40.1 - Stupor Alcohol intoxication Qualifiers: Complication of substance-induced condition: uncomplicated Qualified Code(s): F10.920 - Alcohol use, unspecified with intoxication, uncomplicated Condition: Stable Disposition: HOME, SELF-CARE Additional Instructions: You have been evaluated by both medical and behavioral health teams and have been deemed appropriate for discharge. You are highly encouraged to follow-up with substance abuse treatment. You have been provided these resources to include mobile crisis contact information. ACUTE ALCOHOL INTOXICATION and ALCOHOL ABUSE: Your evaluation revealed very high levels of alcohol. You can from drinking a large amount of alcohol rapidly! Further, there's the risk of falls, traffic accidents, and fights. A high portion (about 50 percent) of the serious injuries seen in hospital emergency rooms are caused by alcohol. Alcohol overdosage is usually due to an underlying emotional or psychiatric problem. You may benefit from counselling. If "binge" drinking is an ongoing problem for you, or if you drink ANY AMOUNT of alcohol EVERY day, you most likely have a tendency to alcoholism. You should avoid alcohol totally. We can refer you for treatment. Persons with alcohol problems are often also prone to other addictions -- you should discuss any use of medications or drugs with the doctor. You should be watched at home for the next several hours by someone who has not been drinking. Get extra fluids for the next 24 hours. Call the doctor if there is repeated vomiting, increasing headache, decreasing level of alertness, or any other worsening. CHRONIC ALCOHOLISM and ALCOHOL ABUSE: Your evaluation reveals evidence of chronic alcoholism, an addiction to alcohol. The tendency to alcoholism may be inherited. Chronic use of alcohol weakens muscles, causes fatty deposits in the liver, damages the stomach, makes you more prone to infections, and can cause defects in unborn children. In the long run, brain atrophy and cirrhosis of the liver result. You are also at greater risk for certain types of cancer, such as cancer of the mouth, throat, stomach, and liver. Counselling services are available to help you. In-hospital treatment prog bozena often help. Support groups such as Alcoholics Anonymous can be very useful in beating this addiction. Your physician can make a referral for you. As alcoholics often are prone to other addictions, you should discuss your use of any other medications with the doctor. ALCOHOL WITHDRAWAL: Your symptoms are caused by alcohol withdrawal. After a period of frequent drinking, the brain and body are changed by the alcohol. When you quit or reduce your drinking, the nervous system becomes unstable. Withdrawal symptoms can start a few hours after your last drink, but sometimes don't begin until a couple of days later. Symptoms can include shakiness, sweating, insomnia, nausea, vomiting, fearfulness, hallucinations, and seizures. In addition to the acute effects of alcohol withdrawal, we often have to deal with the medical effects of alcoholism. These problems often include dehydration, stomach irritation, intestinal bleeding, low blood sugar, liver d isease, and pancreas inflammation. Treatment for alcohol withdrawal includes mild sedatives, vitamins, and fluids. You need to be with someone who can help if symptoms become severe. Many patients can withdraw at home. Admission to the hospital or a detox facility may be necessary if withdrawal symptoms are severe and uncontrollable. Abstaining from alcohol is the only effective long-term treatment. If you start drinking again, you will not be able to control yourself after the first d rink. Treatment programs are available. In addition, many alcoholics benefit from Alcoholics Anonymous or other support groups available through your counselor or religious railroad brake repairer. AL-ANON and ALA-TEEN are support groups for friends and family members of an alcoholic. Go to the emergency room if you develop persistent vomiting, severe abdominal pain, fever, shortness of breath, hallucinations, uncontrollable tremors, or seizures. FOLLOW-UP CARE: If you have been referred to a physician for follow-up care, call the physicians office for an appointment as you were instructed or within the next two days. If you experience worsening or a significant change in your symptoms, notify the physician immediately or return to the Emergency Department at any time for re-evaluation. Referrals: [facility] [Outside] - Follow up as needed Addendum entered and electronically signed by ARIANNE DAWSON LCSWA 05/25/19 11:47: Discharge - Discharge Clinical Impression: Suicide attempt Polysubstance overdose Qualifiers: Encounter type: initial encounter Injury intent: intentional self-harm Qualified Code(s): T50.902A - Poisoning by unspecified drugs, medicaments and biological substances, intentional self-harm, initial encounter Altered mental status Qualifiers: Altered mental status type: stupor Qualified Code(s): R40.1 - Stupor Alcohol intoxication Qualifiers: Complication of substance-induced condition: uncomplicated Qualified Code(s): F10.920 - Alcohol use, unspecified with intoxication, uncomplicated Condition: Stable Disposition: HOME, SELF-CARE Additional Instructions: You have been evaluated by both medical and behavioral health teams and have been deemed appropriate for discharge. You are highly encouraged to follow-up with substance abuse treatment. You have been provided these resources to [facility] mobile crisis contact information. ACUTE ALCOHOL INTOXICATION and ALCOHOL ABUSE: Your evaluation revealed very high levels of alcohol. You can from drinking a large amount of alcohol rapidly! Further, there's the risk of falls, traffic accidents, and fights. A high portion (about 50 percent) of the serious injuries seen in hospital emergency rooms are caused by alcohol. Alcohol overdosage is usually due to an underlying emotional or psychiatric problem. You may benefit from counselling. If "binge" drinking is an ongoing problem for you, or if you drink ANY AMOUNT of alcohol EVERY day, you most likely have a tendency to alcoholism. You should avoid alcohol totally. We can refer you for treatment. Persons with alcohol problems are often also prone to other addictions -- you should discuss any use of medications or drugs with the doctor. You should be watched at home for the next several hours by someone who has not been drinking. Get extra fluids for the next 24 hours. Call the doctor if there is repeated vomiting, increasing headache, decreasing level of alertness, or any other worsening. CHRONIC ALCOHOLISM and ALCOHOL ABUSE: Your evaluation reveals evidence of chronic alcoholism, an addiction to alcohol. The tendency to alcoholism may be inherited. Chronic use of alcohol weakens muscles, causes fatty deposits in the liver, damages the stomach, makes you more prone to infections, and can cause defects in unborn children. In the long run, brain atrophy and cirrhosis of the liver result. You are also at greater risk for certain types of cancer, such as cancer of the mouth, throat, stomach, and liver. Counselling services are available to help you. In-hospital treatment programs often help. Support groups such as Alcoholics Anonymous can be very useful in beating this addiction. Your physician can make a referral for you. As alcoholics often are prone to other addictions, you should discuss your use of any other medications with the doctor. ALCOHOL WITHDRAWAL: Your symptoms are caused by alcohol withdrawal. After a period of frequent drinking, the brain and body are changed by the alcohol. When you quit or reduce your drinking, the nervous system becomes unstable. Withdrawal symptoms can start a few hours after your last drink, but sometimes don't begin until a couple of days later. Symptoms can include shakiness, sweating, insomnia, nausea, vomiting, fearfulness, hallucinations, and seizures. In addition to the acute effects of alcohol withdrawal, we often have to deal with the medical effects of alcoholism. These problems often include dehydration, stomach irritation, intestinal bleeding, low blood sugar, liver disease, and pancreas inflammation. Treatment for alcohol withdrawal includes mild sedatives, vitamins, and fluids. You need to be with someone who can help if symptoms become severe. Many patients can withdraw at home. Admission to the hospital or a detox facility may be necessary if withdrawal symptoms are severe and uncontrollable. Abstaining from alcohol is the only effective long-term treatment. If you start drinking again, you will not be able to control yourself after the first drink. Treatment programs are available. In addition, many alcoholics benefit from Alcoholics Anonymous or other support groups available through your counselor or religious railroad brake repairer. AL-ANON and ALA-TEEN are support groups for friends and family members of an alcoholic. Go to the emergency room if you develop persistent vomiting, severe abdominal pain, fever, shortness of breath, hallucinations, uncontrollable tremors, or seizures. FOLLOW-UP CARE: If you have been referred to a physician for follow-up care, call the physicians office for an appointment as you were instructed or within the next two days. If you experience worsening or a significant change in your symptoms, notify the physician immediately or return to the Emergency Department at any time for re-evaluation. Referrals: [facility] [Outside] - Follow up as needed Original Note: ED General - General Chief Complaint: Overdose Stated Complaint: POSSIBLE OVERDOSE Time Seen by Provider: 08/03/18 22:03 Cannot obtain history due to: Intoxicated, Uncooperative, Altered mental status Notes: 38-year-old female with known history of polysubstance abuse, recurrent visits to the emergency department for substance abuse related issues as well as suicidal occasion and attempts who presents by EMS after overdosing on Xanax, Lyrica, and drinking alcohol. EMS does report the patient has been unresponsive in route to the hospital. Patient is unresponsive at the time of my initial assessment precluding the ability to obtain a history. TRAVEL OUTSIDE OF THE [place] IN LAST 30 DAYS: No - Related Data Allergies/Adverse Reactions: chlorpromazine HCl [From Thorazine] Adverse Reaction (Unknown, Verified 08/03/18 22:25) haloperidol [From Haldol] Adverse Reaction (Unknown, Verified 08/03/18 22:25) Past Medical History - General Information source: Emergency Med Personnel Cannot obtain history due to: Intoxicated, Uncooperative, Altered mental status - Social History Smoking Status: Current Every Day Smoker Frequency of alcohol use: Heavy Drug Abuse: Prescription drugs Family History: Arthritis, DM, Hyperlipidemia, Hypertension - Past Medical History Cardiac Medical History: Reports: Hx Hypercholesterolemia Pulmonary Medical History: Reports: Hx Asthma, Hx Bronchitis Neurological Medical History: Reports: Hx Migraine Renal/ Medical History: Denies: Hx Peritoneal Dialysis GI Medical History: Reports: Hx Gastroesophageal Reflux Disease Musculoskeletal Medical History: Reports Hx Arthritis Psychiatric Medical History: Reports: Hx Attention Deficit Hyperactivity Disorder, Hx Bipolar Disorder, Hx Depression Past Surgical History: Reports: Hx Tubal Ligation - Immunizations Immunizations up to date: Yes Hx Diphtheria, Pertussis, Tetanus Vaccination: Yes - 2011 Hx Pneumococcal Vaccination: 05/12/12 Review of Systems - Review of Systems -: Yes ROS unobtainable due to patient's medical condition Physical Exam - Vital signs Vitals: Resp 18 08/03/18 21:57 Interpretation: Tachycardic Notes: PHYSICAL EXAMINATION: GENERAL: Appears older than stated age, lethargic on initial presentation, will not speak HEAD: Atraumatic, normocephalic. EYES: Pupils equal round and reactive to light, extraocular movements intact, sclera anicteric, conjunctiva are normal. ENT: nares patent, oropharynx clear without exudates. Dry mucous membranes. NECK: supple without lymphadenopathy LUNGS: Breath sounds clear to auscultation bilaterally and equal. No wheezes rales or rhonchi. HEART: Regular tachycardia without murmurs ABDOMEN: Soft, nontender, normoactive bowel sounds. No guarding, no rebound. No masses appreciated. EXTREMITIES: no pitting or edema. No cyanosis. NEUROLOGICAL: No focal neurological deficits. Moves all extremities spontaneously. PSYCH: Somewhat somnolent, does not respond to verbal questioning SKIN: Warm, Dry, normal turgor, no rashes or lesions noted. Course - Re-evaluation Re-evalutation: 08/03/18 22:04 Patient presents by EMS for polysubstance overdose apparently on alcohol, alprazolam, pregabalin. The patient is effectively unresponsive on arrival although this appears to be not entirely substance-induced and partially volitional as when the paramedics are describing the medications that she took the patient is noted by me to visibly be nodding her head in a yes fashion in agreement with the medications that they are listing as well as the dosing. They did place a nasal pharyngeal airway in route to the hospital and the patient woke up and ripped it out of her nose and then went back to Acting in an unresponsive manner. Patient does not require airway intervention at this time although is high risk for airway loss given the medications that she ingested. Will continue to reassess at regular intervals. Patient has been placed on agile java developer. Chest x-ray will be obtained. Labs pending. Patient is in guarded condition will be reassessed on regular intervals. 08/03/18 22:33 Patient is now alert, protecting airway, actually quite agitated, ripping her leads off, ripped her IV out, but is stumbling as she is attempting to walk, and admitted that she committed a suicide attempt tonight in her overdose. The patient refused to comply with treatment, is not sober to make her decisions and in any regard is under an IVC due to her suicide attempt. I did attempt to ve rbally redirect the patient on 2 separate occasions and yet she continued to decline to comply forcing us to have to apply physical restraints to prevent the patient from getting out of bed or trying to elope from the facility. Patient will continue be reassessed at regular intervals. Will avoid sedating medications at this time as the patient is ready taken a large quantity of these I do not wish to cause respiratory suppression or apnea 08/04/18 04:37 Patient was increasingly agitated, given Zyprexa 20 mg IM with successful reduction in her degree of agitation. Medical screening labs and repeat exam otherwise unremarkable. She is cleared for evaluation and disposition by behavioral health in the morning. IVC hold has been completed. - Vital Signs Vital signs: Temp Pulse Resp BP Pulse Ox 22 H 120/89 H 93 08/03/18 22:04 08/03/18 22:04 08/03/18 22:04 - Laboratory Result Diagrams: 08/03/18 22:04 08/03/18 22:04 Laboratory results interpreted by me: 08/03/18 08/03/18 08/04/18 22:04 22:04 01:06 MCV 100 H MCH 34.9 H Lymphocytes % 45.8 H BUN 5 L AST 69 H ALT 76 H Ur Leukocyte Esterase SMALL H Salicylates < 1.0 L Acetaminophen < 10 L - Diagnostic Test Radiology reviewed: Image reviewed, Reports reviewed Radiology results interpreted by me: 08/04/18 04:38 Chest x-ray: No acute infiltrate or pneumothorax - EKG Interpretation by Me Additional EKG results interpreted by me: 08/03/18 22:34 Sinus tachycardia, rate 101. No ST elevations or depressions. QTC is 437. Critical Care Note - Critical Care Note Total time excluding time spent on procedures (mins): 40 Comments: Critical care time spent obtaining history from patient or surrogate, evaluation of patient's response to treatment, examination of patient, ordering and performing treatments and interventions, ordering and review of laboratory studies, re-evaluation of patient's condition, ordering and review of radiographic studies and review of old charts Discharge - Discharge Clinical Impression: Suicide attempt Polysubstance overdose Qualifiers: Encounter type: initial encounter Injury intent: intentional self-harm Qualified Code(s): T50.902A - Poisoning by unspecified drugs, medicaments and biological substances, intentional self-harm, initial encounter Altered mental status Qualifiers: Altered mental status type: stupor Qualified Code(s): R40.1 - Stupor Alcohol intoxication Qualifiers: Complication of substance-induced condition: uncomplicated Qualified Code(s): F10.920 - Alcohol use, unspecified with intoxication, uncomplicated Condition: Fair Disposition: PSYCH HOSP/UNIT
[2018-08-03 22:25] LABS: ABSOLUTE EOSINOPHILS # (AUTO) 0.1 10^3/uL (0.0-0.6); ABSOLUTE MONOCYTES (AUTO) 0.5 10^3/uL (0.1-1.4); ABSOLUTE NEUT (AUTO) 2.9 10^3/uL (1.7-8.2); BASOPHILS % (AUTO) 0.4 % (0-2); EOSINOPHILS % (AUTO) 1.9 % (0-6); HEMATOCRIT 43.2 % (36.0-47.0); LYMPHOCYTES % (AUTO) 45.8 % (13-45); MEAN CORPUSCULAR HEMOGLOBIN 34.9 pg (27.0-33.4); MEAN CORPUSCULAR HGB CONC 34.7 g/dL (32.0-36.0); MEAN CORPUSCULAR VOLUME 100 fl (80-97); PLATELET COUNT 227 10^3/uL (150-450); RED CELL DISTRIBUTION WIDTH 13.4 % (11.5-14.0); SEGMENTED NEUTROPHILS % (AUTO) 43.9 % (42-78); TOTAL CELLS COUNTED % (AUTO) 100 %; WHITE BLOOD COUNT 6.6 10^3/uL (4.0-10.5)
--- NOTE | 2018-08-03 22:32 | EKG REPORT ---
SEVERITY:- OTHERWISE NORMAL ECG - SINUS TACHYCARDIA : Confirmed by: Cole Booker 03-Aug-2018 22:32:04
[2018-08-03 22:49] LABS: ACETAMINOPHEN < 10 ug/mL (10-30); ALANINE AMINOTRANSFERASE 76 U/L (9-52); ALBUMIN 3.9 g/dL (3.5-5.0); ALCOHOL 224 mg/dL (NONE DETECTED); ALKALINE PHOSPHATASE 112 U/L (38-126); ANION GAP 12 (5-19); ASPARTATE AMINO TRANSFERASE 69 U/L (14-36); BILIRUBIN,DIRECT 0.3 mg/dL (0.0-0.4); BILIRUBIN,TOTAL 0.4 mg/dL (0.2-1.3); BLOOD UREA NITROGEN 5 mg/dL (7-20); CALCIUM 9.3 mg/dL (8.4-10.2); CARBON DIOXIDE 24 mmol/L (22-30); CHLORIDE 107 mmol/L (98-107); GLUCOSE 89 mg/dL (75-110); SALICYLATE < 1.0 mg/dL (2.0-20.0); SODIUM 142.6 mmol/L (137-145); TOTAL PROTEIN 6.9 g/dL (6.3-8.2)
[2018-08-04 01:38] LABS: APPEARANCE,URINE CLOUDY; BILIRUBIN,URINE NEGATIVE (NEGATIVE); COLOR,URINE YELLOW; GLUCOSE, URINE NEGATIVE (NEGATIVE); KETONES,URINE NEGATIVE (NEGATIVE); LEUKOCYTE ESTERASE,URINE SMALL (NEGATIVE); NITRITE,URINE NEGATIVE (NEGATIVE); PROTEIN,URINE NEGATIVE (NEGATIVE); UROBILINOGEN,URINE NEGATIVE mg/dL (<2.0)
[2018-08-04] MEDS ORDERED: OLANZAPINE INJ/PF 10 MG SDV IM ONE (01:53)
[2018-08-04 02:06] LABS: URINE AMPHETAMINES SCREEN NEGATIVE; URINE BARBITURATES SCREEN UNCONFIRMED POSITIVE; URINE BENZODIAZEPINES SCREEN UNCONFIRMED POSITIVE; URINE COCAINE SCREEN NEGATIVE; URINE MARIJUANA (THC) SCREEN UNCONFIRMED POSITIVE; URINE METHADONE SCREEN NEGATIVE; URINE PHENCYCLIDINE SCREEN NEGATIVE
--- NOTE | 2018-08-04 03:29 | RADIOLOGY REPORT (SQ) ---
EXAM DESCRIPTION: XR CHEST 1 VIEW COMPLETED DATE/TME: 08/03/2018 22:06 CLINICAL HISTORY: 38 years, Female, sob COMPARISON: 12/19/2016 NUMBER OF VIEWS: One TECHNIQUE: AP view of the chest LIMITATIONS: None. FINDINGS: The lungs are clear. The heart is normal in size. There is no pneumothorax or pleural effusion. There is no acute fracture IMPRESSION: No acute cardiopulmonary abnormality copyright 2010 [employer]- All Rights Reserved
--- NOTE | 2018-08-04 10:04 | ER Document Report ---
Doctor's Note Notes: 08/04/18 10:02 Rounds: Patient sleeping, but awakened easily. Patient is here for polysubstance abuse and overdose. Questionable suicidal attempt. Patient's vital signs are all normal this morning. Patient's lab studies showed very trivial increases in her LFTs, of no clinical significance. Her blood alcohol level was 224 on admission. Drug screen was positive for barbiturates and benzodiazepines and marijuana. Patient is currently on an IVC. Patient appears to be medically stable for transfer or discharge. Emiliano Galan MD
--- NOTE | 2018-08-04 11:39 | PSYCHOLOGICAL NOTE ---
Psych Note - Psych Note Date seen by psych provider: 08/04/18 Time seen by psych provider: 07:45 - 1st attempt 1000 and attempt [id number] Psych Note: Reason for Consult: Reported Overdose 38-year-old female with known history of polysubstance abuse, recurrent visits to the emergency department for substance abuse related issues as well as suicidal occasion and attempts who presents by EMS after overdosing on Xanax, Lyrica, and drinking alcohol. EMS does report the patient has been unresponsive in route to the hospital. evaluation attempted multiple times with patient refusing to engage Patient wakes up and is willing to engage. She reports that she will never call mobile crisis again. When asked why she states that "I did not want to come to the hospital I wanted to go to detox." She reports that she is ready to go home but asked that she could at least a day and eat some lunch before she leaves. When asked if she would like assistance in seeing if any detox beds are available she declines and states that she will do it another time. Patient denies taking any medication and attempt to kill herself. Patient then states that she does not have a ride to get back home that it will need to be provided for her because she has a broken foot. Patient then clarified that she had a broken foot in 2 days ago her cast was removed. Patient is alert and orientated to person, place, time and circumstance. Mood is euthymic with congruent affect. Patient denies suicidal and homicidal ideations. Delusions are absent behaviors congruent with an intact reality based presentation i.e. organized and linear thought process. Eye contact is fair. Conversational speech is within normal rate, tone and prosody. Intellectual abilities appear to be within the average range. Attention and concentration are fair. Insight, judgment, impulse control are historically poor for this patient. Chart review conducted: Attending evening physician noted The patient is effectively unresponsive on arrival although this appears to be not entirely substance-induced and partially volitional as when the paramedics are describing the medications that she took the patient is noted by me to visibly be nodding her head in a yes fashion in agreement with the medications that they are listing as well as the dosing. Attending nurses noted Pt told mobile crisis that she has been drinking alcohol all day. Pt also states she took ten 25mg tablets of Librium, and fifteen 1mg tablets of xanax. Pt continues to request her phone which we have explained to her multiple times she can't have. Pt states," I should have just killed myself for real." Pt states, " I didn't take any Librium, I took xanax. This nurse has asked patient to follow the rules that have been reviewed with her. Pt states, " I'm going to yell all night long till you give me what I want. Pt is screaming at the top of her lungs. Pt. states she lied about taking medications to hurt herself and states she lied about how much Xanax she took. Pt. now screaming to nurses station "I want to go to sleep!" [facility] states pt. is now at "behavioral issues" and not side effects of medications taken. They state they will close her file at this time. no medication recommendations at this time 303.90 (F10.20) Alcohol Use Disorder, severe 304.10 (F13.20) Benzodiazepine Use Disorder, Moderate 296.52 (F31.32) Bipolar I Disorder, Depressed, Recurrent, Moderate by history Cluster B personality Traits are noted Impression\\plan: Patient is recommended for rescind of IVC and is cleared from acute psychiatric services. Patient no longer meets IVC criteria per [place] GS 122C. She has no longer under the influence. Patient is well-known to this clinician and department. She has a long history of substance abuse in addition to demonstrating cluster B personality traits. Clinician notes conflicting reports and presentation throughout patient's [facility] ED visit. While patient reported overdose on medication patient did recant this report to attending nurse and denies to clinician. This patient does have a history of acting out behaviorally when attempting to achieve secondary gains. Patient is highly encouraged to follow-up with her outpatient mental health services for substance abuse treatment; this information was provided. Patient currently declines assistance in obtaining detox services. Dr. Pink was consulted and the care management of this patient; attending physicians in agreement with recommendations and disposition
[2018-08-04 12:36] VITALS: BP 121/78
== END 2018-08-04 12:36 | disposition home or self-care (01) ==
LOC: ER 21:56
DX: T42.6X2A Poisoning by other antiepileptic and sedative-hypnotic drugs, intentional self-harm, initial encounter (principal); T42.4X2A Poisoning by benzodiazepines, intentional self-harm, initial encounter; F10.920 Alcohol use, unspecified with intoxication, uncomplicated; Y90.7 Blood alcohol level of 200-239 mg/100 ml; R40.1 Stupor; F17.200 Nicotine dependence, unspecified, uncomplicated; E78.00 Pure hypercholesterolemia, unspecified; Z98.51 Tubal ligation status
CPT/HCPCS: 36415; 71045; 80053; 80307; 81001; 84703; 85025; 93005; 93010; 96372; 99291

== ENCOUNTER 2018-08-15 01:43 | Emergency (ER) | payer MEDICAID ==
[2018-08-15] MEDS ORDERED: ALBUTEROL SULFATE 0.083% NEB 2.5 MG/3 ML AMPUL NEB ONE (01:51)
--- NOTE | 2018-08-15 01:57 | ER Document Report ---
ED General - General Stated Complaint: DIFFICULTY BREATHING Time Seen by Provider: 08/15/18 01:50 Primary Care Provider: [facility] [Provider Group] - Follow up as needed TRAVEL OUTSIDE OF THE [place] IN LAST 30 DAYS: No - HPI Notes: Patient is a 38-year-old female that presents to the emergency department for chief complaint of alcohol intoxication and shortness of breath. Patient's family member called EMS tonight for patient concerned that she was having a difficult time breathing. Patient does have a history of COPD and is still smoking the same amount. She denies any efforts to decrease the amount of tobacco she is consuming. Patient has used her albuterol inhaler 2 times yesterday but did not use it today. She states she does not like using the albuterol because it makes her heart race. She states her shortness of breath has been getting worse over the last week. She denies fevers or chills but does states she has been coughing more. Patient also reports being an alcoholic and consuming "a lot" of alcohol today. Patient states she is talking with mobile crisis to get into inpatient detox for her alcoholism but no beds are currently available. She denied any chest pain, injuries or falls today, fevers, nausea/vomiting, numbness and weakness, and abdominal pain. Past Medical History: Hepatitis C, chronic pancreatitis Past Surgical History: Reviewed in chart Social History: Daily alcohol. Daily tobacco. Denies drug use Family History: Reviewed and noncontributory for presenting illness Allergies: Reviewed, see documented allergy list. REVIEW OF SYSTEMS: CONSTITUTIONAL : No fever No chills No diaphoresis No recent illness EENT: No vision changes No congestion No sore throat CARDIOVASCULAR: No chest pain No palpitations RESPIRATORY: shortness of breath cough difficulty breathing GASTROINTESTINAL: No abdominal pain No nausea No vomiting No diarrhea GENITOURINARY: No dysuria No hematuria No difficulty urinating MUSCULOSKELETAL: No back pain No leg pain No arm pain SKIN: No rashes No lesions LYMPHATIC: No swollen, enlarged glands. NEUROLOGICAL: No lightheadedness No headache No weakness No paresthesias PSYCHIATRIC: No anxiety No depression PHYSICAL EXAMINATION: Vital signs reviewed, nursing noted reviewed. GENERAL: Appears intoxicated, well-nourished and in no acute distress. HEAD: Atraumatic, normocephalic. EYES: Eyes appear normal, extraocular movements intact, sclera anicteric, conjunctiva are normal. ENT: nares patent, oropharynx clear without exudates. Dry mucous membranes. NECK: Normal range of motion, supple without lymphadenopathy LUNGS: Wheezing to auscultation bilaterally, no tachypnea, retractions or accessory muscle use. Speaking in full sentences HEART: Regular rate and rhythm without murmurs ABDOMEN: Soft, nontender, normoactive bowel sounds. No rebound, guarding, or rigidity. No masses appreciated. EXTREMITIES: Surgical boot to right foot, no pitting or edema. NEUROLOGICAL: No focal neurological deficits. Moves all extremities spontaneously Motor and sensory grossly intact on exam. PSYCH: Normal mood, normal affect. SKIN: Warm, Dry, normal turgor, no rashes or lesions noted on exposed skin - Related Data Allergies/Adverse Reactions: chlorpromazine HCl [From Thorazine] Adverse Reaction (Unknown, Verified 08/03/18 22:25) haloperidol [From Haldol] Adverse Reaction (Unknown, Verified 08/03/18 22:25) Past Medical History - Social History Smoking Status: Current Every Day Smoker Family History: Arthritis, DM, Hyperlipidemia, Hypertension - Past Medical History Cardiac Medical History: Reports: Hx Hypercholesterolemia Pulmonary Medical History: Reports: Hx Asthma, Hx Bronchitis Neurological Medical History: Reports: Hx Migraine Renal/ Medical History: Denies: Hx Peritoneal Dialysis GI Medical History: Reports: Hx Gastroesophageal Reflux Disease Musculoskeletal Medical History: Reports Hx Arthritis Psychiatric Medical History: Reports: Hx Attention Deficit Hyperactivity Disorder, Hx Bipolar Disorder, Hx Depression Past Surgical History: Reports: Hx Tubal Ligation - Immunizations Immunizations up to date: Yes Hx Diphtheria, Pertussis, Tetanus Vaccination: Yes - 2011 Hx Pneumococcal Vaccination: 05/12/12 Course - Re-evaluation Re-evalutation: 08/15/18 01:56 Vitals reviewed. Nursing notes reviewed. Patient received Solu-Medrol 125 mg and 1 DuoNeb by EMS prior to arrival. She does have bilateral wheezing and will be given albuterol for further management of her acute COPD exacerbation. Patient did report cough and chest x-ray will be obtained to evaluate for underlying pneumonia. Patient was reportedly smoking a cigarette and drinking alcohol when EMS arrived at her house. She is not in any acute respiratory distress. She does appear clinically intoxicated and endorses chronic alcoholism. Currently patient's O2 is normal on room air. 08/15/18 05:44 Patient is now less intoxicated. She is able to ambulate without difficulty. She is more alert and speaking in full sentences. Patient has no acute respiratory distress. Chest x-ray is unremarkable. She does have an albuterol inhaler and will use it 2 puffs every 4 hours at home for shortness of breath. Patient will be started on prednisone for her acute COPD exacerbation. Patient is now requesting to talk to someone about getting placed in an inpatient alcohol detox program. She will remain in the ED until social work is available to discuss this option with her in about an hour. Chest X-Ray 08/15/18 01:50 IMPRESSION: Clear lungs. 08/15/18 06:12 After my conversation with patient regarding wanting to stay for detox evaluation she eloped from the emergency room. She left prior to receiving discharge instructions or her prednisone prescription. She ambulated out without difficulty on her own accord. Discharge - Discharge Clinical Impression: COPD exacerbation Acute alcohol intoxication Qualifiers: Complication of substance-induced condition: uncomplicated Qualified Code(s): F10.920 - Alcohol use, unspecified with intoxication, uncomplicated Condition: Stable Disposition: ELOPED Instructions: Chronic Alcoholism ([facility]), Chronic Obstructive Lung Disease ([facility]) Additional Instructions: Please return to the emergency department if you have any worsening, or concern of your symptoms. Please return to the emergency department if you develop chest pain, difficulty breathing, severe abdominal pain, or ongoing vomiting. Please follow-up with your primary care physician in 2-3 days and any other recommended physicians. If prescribed, take all medications as directed. If you have any questions or concerns do not hesitate to return the emergency department for evaluation. Continue to work with mobile crisis to assist you in obtaining an inpatient alcohol detox bed Prescriptions: Prednisone [Deltasone 20 mg Tablet] 2 tab PO DAILY 5 Days tablet Forms: Smoking Cessation Education Referrals: [facility] [Provider Group] - Follow up as needed
--- NOTE | 2018-08-15 04:10 | RADIOLOGY REPORT (SQ) ---
CLINICAL HISTORY: shortness of breath COMPARISON: August 04, 2018. TECHNIQUE: XR CHEST 1 VIEW 08/15/2018 1:50 AM CDT FINDINGS: Cardiac silhouette is normal in size. Lungs are clear without consolidation, atelectasis, mass or edema. There is no pleural effusion. There is no pneumothorax. There are no acute osseous findings. IMPRESSION: Clear lungs.
== END 2018-08-15 06:35 | disposition left against medical advice (07) ==
LOC: ER 01:43
DX: J44.1 Chronic obstructive pulmonary disease with (acute) exacerbation (principal); F10.229 Alcohol dependence with intoxication, unspecified; R06.02 Shortness of breath; R05 Cough; F17.210 Nicotine dependence, cigarettes, uncomplicated; Z53.20 Procedure and treatment not carried out because of patient's decision for unspecified reasons
CPT/HCPCS: 71045; 99284

== ENCOUNTER 2018-08-17 06:39 | Emergency (ER) | payer MEDICAID ==
[2018-08-17] MEDS ORDERED: RINGERS SOLUTION,LACTATED 1,000 ML IV ONE (07:09)
--- NOTE | 2018-08-17 07:19 | ER Document Report ---
ED General - General Stated Complaint: ALCOHOL ABUSE Time Seen by Provider: 08/17/18 07:08 TRAVEL OUTSIDE OF THE [place] IN LAST 30 DAYS: No - HPI Notes: Patient is a 38-year-old female that presents to the emergency department for c hief complaint of intoxication. Patient states that yesterday at 11 AM she was supposed to go to the [facility] for alcohol detox. She was unable to get a ride at 11 AM and by the time she did get a ride from her brother the bed had been given away. Patient then decided to drink "a gallon of vodka". Patient was at her home drinking vodka with her boyfriend who called EMS because she was getting too drunk. She did not have any trauma or injury. Patient states she overdid it and was not trying to hurt herself. She does have history of alcoholism, hepatitis C and liver failure. Patient denies current abdominal pain, nausea and vomiting. She does have a history of alcohol withdrawal seizures and DTs. Past Medical History: Hepatitis C, carpal tunnel Past Surgical History: Reviewed in chart Social History: Alcoholism Family History: Reviewed and noncontributory for presenting illness Allergies: Reviewed, see documented allergy list. REVIEW OF SYSTEMS: CONSTITUTIONAL : No fever No chills No diaphoresis No recent illness EENT: No vision changes No congestion No sore throat CARDIOVASCULAR: No chest pain No palpitations RESPIRATORY: No shortness of breath No cough No difficulty breathing GASTROINTESTINAL: No abdominal pain No nausea No vomiting No diarrhea GENITOURINARY: No dysuria No hematuria No difficulty urinating MUSCULOSKELETAL: No back pain No leg pain No arm pain SKIN: No rashes No lesions LYMPHATIC: No swollen, enlarged glands. NEUROLOGICAL: No lightheadedness No headache No weakness No paresthesias PSYCHIATRIC: No anxiety No depression PHYSICAL EXAMINATION: Vital signs reviewed, nursing noted reviewed. GENERAL: Appears intoxicated, well-nourished and in no acute distress. HEAD: Atraumatic, normocephalic. EYES: Eyes appear normal, extraocular movements intact, sclera anicteric, conjunctiva are normal. ENT: nares patent, oropharynx clear without exudates. Moist mucous membranes. NECK: Normal range of motion, supple without lymphadenopathy LUNGS: Breath sounds clear to auscultation bilaterally and equal. No wheezes rales or rhonchi. HEART: Regular rate and rhythm without murmurs ABDOMEN: Soft, nontender, normoactive bowel sounds. No rebound, guarding, or rigidity. No masses appreciated. EXTREMITIES: Nontender, good range of motion, no pitting or edema. NEUROLOGICAL: Somnolent, oriented to person place and time. Moves all extremities spontaneously Motor and sensory grossly intact on exam. PSYCH: Normal mood, normal affect. SKIN: Warm, Dry, normal turgor, no rashes or lesions noted on exposed skin - Related Data Allergies/Adverse Reactions: chlorpromazine HCl [From Thorazine] Adverse Reaction (Unknown, Verified 08/03/18 22:25) haloperidol [From Haldol] Adverse Reaction (Unknown, Verified 08/03/18 22:25) Past Medical History - Social History Smoking Status: Current Every Day Smoker Family History: Arthritis, DM, Hyperlipidemia, Hypertension - Past Medical History Cardiac Medical History: Reports: Hx Hypercholesterolemia Pulmonary Medical History: Reports: Hx Asthma, Hx Bronchitis Neurological Medical History: Reports: Hx Migraine Renal/ Medical History: Denies: Hx Peritoneal Dialysis GI Medical History: Reports: Hx Gastroesophageal Reflux Disease Musculoskeletal Medical History: Reports Hx Arthritis Psychiatric Medical History: Reports: Hx Attention Deficit Hyperactivity Disorder, Hx Bipolar Disorder, Hx Depression Past Surgical History: Reports: Hx Tubal Ligation - Immunizations Immunizations up to date: Yes Hx Diphtheria, Pertussis, Tetanus Vaccination: Yes - 2011 Hx Pneumococcal Vaccination: 05/12/12 Course - Re-evaluation Re-evalutation: 08/17/18 07:19 Vitals reviewed. Nursing notes reviewed. Patient is hemodynamically stable and does appear intoxicated consistent with her history of drinking "a gallon of vodka". Patient will be placed on telemetry monitoring given IV fluids. 08/17/18 10:51 Patient has been monitored in the emergency room. She is now able to ambulate and is speaking in full sentences. Patient is getting combative with staff and demanding breakfast tray. She has a history of chronic alcoholism and her lab work is unremarkable. Patient will continue to work with mobile [facility] on placement at the [facility] for voluntary alcohol detox. She is not currently in acute alcohol withdrawal. She is stable for discharge with a sober ride home Laboratory 08/17/18 08/17/18 08:08 08:08 WBC 6.2 RBC 4.18 Hgb 14.6 Hct 42.3 MCV 101 H MCH 35.0 H MCHC 34.6 RDW 13.8 Plt Count 196 Seg Neutrophils % 39.8 L Lymphocytes % 52.2 H Monocytes % 6.1 Eosinophils % 1.0 Basophils % 0.9 Absolute Neutrophils 2.5 Absolute Lymphocytes 3.2 Absolute Monocytes 0.4 Absolute Eosinophils 0.1 Absolute Basophils 0.1 Sodium 144.7 Potassium 3.7 Chloride 110 H Carbon Dioxide 26 Anion Gap 9 BUN 12 Creatinine 0.60 Est GFR ( Amer) > 60 Est GFR (Non-Af Amer) > 60 Glucose 90 Calcium 8.4 Total Bilirubin 0.3 Direct Bilirubin 0.3 Neonat Total Bilirubin Not Reportable Neonat Direct Bilirubin Not Reportable Neonat Indirect Bili Not Reportable AST 79 H ALT 67 H Alkaline Phosphatase 127 H Total Protein 6.2 L Albumin 3.5 - Laboratory Result Diagrams: 08/17/18 08:08 08/17/18 08:08 Laboratory results interpreted by me: 08/17/18 08/17/18 08:08 08:08 MCV 101 H MCH 35.0 H Seg Neutrophils % 39.8 L Lymphocytes % 52.2 H Chloride 110 H AST 79 H ALT 67 H Alkaline Phosphatase 127 H Total Protein 6.2 L Discharge - Discharge Clinical Impression: Alcohol intoxication Qualifiers: Complication of substance-induced condition: uncomplicated Qualified Code(s): F10.920 - Alcohol use, unspecified with intoxication, uncomplicated Condition: Stable Disposition: HOME, SELF-CARE Instructions: Acute Alcohol Intoxication ([facility]) Additional Instructions: Please return to the emergency department if you have any worsening, or concern of your symptoms. Please return to the emergency department if you develop chest pain, difficulty breathing, severe abdominal pain, or ongoing vomiting. Please follow-up with your primary care physician in 2-3 days and any other recommended physicians. If prescribed, take all medications as directed. If you have any questions or concerns do not hesitate to return the emergency d epartment for evaluation. Contact mobile crisis to assist with placement at the [facility] for voluntary alcohol detox Referrals: [facility] [Provider Group] - Follow up as needed
[2018-08-17 08:18] LABS: ABSOLUTE BASOPHILS # (AUTO) 0.1 10^3/uL (0.0-0.2); ABSOLUTE EOSINOPHILS # (AUTO) 0.1 10^3/uL (0.0-0.6); ABSOLUTE LYMPHOCYTES (AUTO) 3.2 10^3/uL (0.5-4.7); ABSOLUTE MONOCYTES (AUTO) 0.4 10^3/uL (0.1-1.4); ABSOLUTE NEUT (AUTO) 2.5 10^3/uL (1.7-8.2); BASOPHILS % (AUTO) 0.9 % (0-2); HEMATOCRIT 42.3 % (36.0-47.0); HEMOGLOBIN 14.6 g/dL (12.0-15.5); LYMPHOCYTES % (AUTO) 52.2 % (13-45); MEAN CORPUSCULAR HGB CONC 34.6 g/dL (32.0-36.0); MEAN CORPUSCULAR VOLUME 101 fl (80-97); MONOCYTES % (AUTO) 6.1 % (3-13); PLATELET COUNT 196 10^3/uL (150-450); RED BLOOD COUNT 4.18 10^6/uL (3.72-5.28); RED CELL DISTRIBUTION WIDTH 13.8 % (11.5-14.0); SEGMENTED NEUTROPHILS % (AUTO) 39.8 % (42-78); TOTAL CELLS COUNTED % (AUTO) 100 %; WHITE BLOOD COUNT 6.2 10^3/uL (4.0-10.5)
[2018-08-17 08:38] LABS: ALANINE AMINOTRANSFERASE 67 U/L (9-52); ALBUMIN 3.5 g/dL (3.5-5.0); ALKALINE PHOSPHATASE 127 U/L (38-126); ANION GAP 9 (5-19); ASPARTATE AMINO TRANSFERASE 79 U/L (14-36); BILIRUBIN,DIRECT 0.3 mg/dL (0.0-0.4); BILIRUBIN,TOTAL 0.3 mg/dL (0.2-1.3); BLOOD UREA NITROGEN 12 mg/dL (7-20); CALCIUM 8.4 mg/dL (8.4-10.2); CARBON DIOXIDE 26 mmol/L (22-30); CHLORIDE 110 mmol/L (98-107); GLUCOSE 90 mg/dL (75-110); POTASSIUM 3.7 mmol/L (3.6-5.0); SODIUM 144.7 mmol/L (137-145); TOTAL PROTEIN 6.2 g/dL (6.3-8.2)
== END 2018-08-17 11:15 | disposition home or self-care (01) ==
LOC: ER 06:39
DX: F10.220 Alcohol dependence with intoxication, uncomplicated (principal); F17.200 Nicotine dependence, unspecified, uncomplicated; J45.909 Unspecified asthma, uncomplicated
CPT/HCPCS: 99284; 96360; 36415; 85025; 80053; J7120

== ENCOUNTER 2018-08-17 22:58 | Emergency (ER) | payer MEDICAID ==
[2018-08-18] MEDS ORDERED: DIPH/PERTUSS(ACELL)/TETANUS VAC/PF 0.5 ML SYR (>=10YO) IM ONE (00:11)
--- NOTE | 2018-08-18 00:13 | ER Document Report ---
ED Medical Screen (RME) - General Chief Complaint: Psych Problem Stated Complaint: PSYCH ISSUE Time Seen by Provider: 08/17/18 23:53 Notes: 38-year-old female chief complaint of suicide attempt. Reportedly she was on the phone with her ex, ex called the police for fears of suicide, police found her locked in her room with a knife pressed against her throat. She has a tiny superficial cuts on her throat from the knife. She states she wanted to commit suicide and would have if they had not shown up. Her tetanus is not up-to-date within 5 years. Past medical history of chronic alcoholism, alcohol withdrawals, last drink of alcohol was reportedly 1 hour prior to arrival. TRAVEL OUTSIDE OF THE [place] IN LAST 30 DAYS: No - Related Data Allergies/Adverse Reactions: chlorpromazine HCl [From Thorazine] Adverse Reaction (Unknown, Verified 08/03/18 22:25) haloperidol [From Haldol] Adverse Reaction (Unknown, Verified 08/03/18 22:25) Past Medical History - Past Medical History Cardiac Medical History: Reports: Hx Hypercholesterolemia Pulmonary Medical History: Reports: Hx Asthma, Hx Bronchitis Neurological Medical History: Reports: Hx Migraine Renal/ Medical History: Denies: Hx Peritoneal Dialysis GI Medical History: Reports: Hx Gastroesophageal Reflux Disease Musculoskeltal Medical History: Reports Hx Arthritis Psychiatric Medical History: Reports: Hx Attention Deficit Hyperactivity Disorder, Hx Bipolar Disorder, Hx Depression Past Surgical History: Reports: Hx Tubal Ligation - Immunizations Immunizations up to date: Yes Hx Diphtheria, Pertussis, Tetanus Vaccination: Yes - 2011 Physical Exam - Vital signs Vitals: Temp Pulse Resp BP Pulse Ox 97.8 F 95 22 H 113/84 94 08/17/18 23:19 08/17/18 23:19 08/17/18 23:19 08/17/18 23:19 08/17/18 23:19 - General General appearance: Appears well, Alert In distress: None - Skin Skin irregularity: other - Scabs developing over tiny superficial cuts at the base of the neck anteriorly Course - Re-evaluation Re-evalutation: Patient without vital signs or symptoms/examination suggesting alcohol withdrawal at this time. I have greeted and performed a rapid initial assessment of this patient. A comprehensive ED assessment and evaluation of the patient, analysis of test results and completion of the medical decision making process will be conducted by additional ED providers. - Vital Signs Vital signs: Temp Pulse Resp BP Pulse Ox 97.8 F 95 22 H 113/84 94 08/17/18 23:19 08/17/18 23:19 08/17/18 23:19 08/17/18 23:19 08/17/18 23:19
[2018-08-18 00:23] LABS: ABSOLUTE BASOPHILS # (AUTO) 0.1 10^3/uL (0.0-0.2); ABSOLUTE EOSINOPHILS # (AUTO) 0.1 10^3/uL (0.0-0.6); ABSOLUTE LYMPHOCYTES (AUTO) 3.2 10^3/uL (0.5-4.7); ABSOLUTE MONOCYTES (AUTO) 0.4 10^3/uL (0.1-1.4); ABSOLUTE NEUT (AUTO) 2.5 10^3/uL (1.7-8.2); BASOPHILS % (AUTO) 0.9 % (0-2); EOSINOPHILS % (AUTO) 1.2 % (0-6); HEMATOCRIT 47.2 % (36.0-47.0); HEMOGLOBIN 16.2 g/dL (12.0-15.5); LYMPHOCYTES % (AUTO) 51.8 % (13-45); MEAN CORPUSCULAR HEMOGLOBIN 34.6 pg (27.0-33.4); MEAN CORPUSCULAR HGB CONC 34.3 g/dL (32.0-36.0); MEAN CORPUSCULAR VOLUME 101 fl (80-97); MONOCYTES % (AUTO) 5.6 % (3-13); PLATELET COUNT 212 10^3/uL (150-450); RED BLOOD COUNT 4.67 10^6/uL (3.72-5.28); RED CELL DISTRIBUTION WIDTH 13.9 % (11.5-14.0); SEGMENTED NEUTROPHILS % (AUTO) 40.5 % (42-78); TOTAL CELLS COUNTED % (AUTO) 100 %; WHITE BLOOD COUNT 6.3 10^3/uL (4.0-10.5)
[2018-08-18 00:38] LABS: ALANINE AMINOTRANSFERASE 78 U/L (9-52); ALCOHOL 295 mg/dL (NONE DETECTED); ALKALINE PHOSPHATASE 120 U/L (38-126); ANION GAP 10 (5-19); ASPARTATE AMINO TRANSFERASE 120 U/L (14-36); BILIRUBIN,DIRECT 0.3 mg/dL (0.0-0.4); BILIRUBIN,TOTAL 0.4 mg/dL (0.2-1.3); BLOOD UREA NITROGEN 11 mg/dL (7-20); CALCIUM 8.8 mg/dL (8.4-10.2); CARBON DIOXIDE 27 mmol/L (22-30); CHLORIDE 106 mmol/L (98-107); GLUCOSE 85 mg/dL (75-110); POTASSIUM 3.7 mmol/L (3.6-5.0); SODIUM 142.8 mmol/L (137-145); TOTAL PROTEIN 7.2 g/dL (6.3-8.2)
[2018-08-18 00:40] LABS: ACETAMINOPHEN < 10 ug/mL (10-30); SALICYLATE < 1.0 mg/dL (2.0-20.0)
[2018-08-18 00:44] LABS: APPEARANCE,URINE SLIGHTLY-CLOUDY; BILIRUBIN,URINE NEGATIVE (NEGATIVE); COLOR,URINE YELLOW; GLUCOSE, URINE NEGATIVE (NEGATIVE); KETONES,URINE NEGATIVE (NEGATIVE); LEUKOCYTE ESTERASE,URINE SMALL (NEGATIVE); NITRITE,URINE NEGATIVE (NEGATIVE); PROTEIN,URINE NEGATIVE (NEGATIVE); URINE SPECIFIC GRAVITY 1.009; UROBILINOGEN,URINE NEGATIVE mg/dL (<2.0)
[2018-08-18] MEDS ORDERED: DIPHENHYDRAMINE HCL 25 MG CAPSULE PO ONE (00:54)
[2018-08-18 01:02] LABS: URINE AMPHETAMINES SCREEN NEGATIVE; URINE BARBITURATES SCREEN NEGATIVE; URINE BENZODIAZEPINES SCREEN UNCONFIRMED POSITIVE; URINE COCAINE SCREEN NEGATIVE; URINE MARIJUANA (THC) SCREEN UNCONFIRMED POSITIVE; URINE METHADONE SCREEN NEGATIVE; URINE PHENCYCLIDINE SCREEN NEGATIVE
--- NOTE | 2018-08-18 01:23 | ER Document Report ---
Addendum entered and electronically signed by MAY NASCIMENTO MD 08/18/18 12:43: Discharge - Discharge Clinical Impression: Depression with suicidal ideation, Substance abuse Acute alcohol intoxication Qualifiers: Complication of substance-induced condition: uncomplicated Qualified Code(s): F10.920 - Alcohol use, unspecified with intoxication, uncomplicated Condition: Stable Disposition: HOME, SELF-CARE Additional Instructions: You have been evaluated both medical and behavioral health teams and been deemed appropriate for discharge. Currently there are no detox beds available at the [facility] or any of the [facility] [place] [facility] detox facilities. You are encouraged to continue working with integrated family services in addition to contacting et facilities for bed availability. ACUTE ALCOHOL INTOXICATION and ALCOHOL ABUSE: Your evaluation revealed very high levels of alcohol. You can from drinking a large amount of alcohol rapidly! Further, there's the risk of falls, traffic accidents, and fights. A high portion (about 50 percent) of the serious injuries seen in hospital emergency rooms are caused by alcohol. Alcohol overdosage is usually due to an underlying emotional or psychiatric problem. You may benefit from counselling. If "binge" drinking is an ongoing problem for you, or if you drink ANY AMOUNT of alcohol EVERY day, you most likely have a tendency to alcoholism. You should avoid alcohol totally. We can refer you for treatment. Persons with alcohol problems are often also prone to other addictions -- you should discuss any use of medications or drugs with the doctor. You should be watched at home for the next several hours by someone who has not been drinking. Get extra fluids for the next 24 hours. Call the doctor if there is repeated vomiting, increasing headache, decreasing level of alertness, or any other worsening. CHRONIC ALCOHOLISM and ALCOHOL ABUSE: Your evaluation reveals evidence of chronic alcoholism, an addiction to alcohol. The tendency to alcoholism may be inherited. Chronic use of alcohol weakens muscles, causes fatty deposits in the liver, damages the stomach, makes you more prone to infections, and can cause defects in unborn children. In the long run, brain atrophy and cirrhosis of the liver result. You are also at greater risk for certain types of cancer, such as cancer of the mouth, throat, stomach, and liver. Counselling services are available to help you. In-hospital treatment programs often help. Support groups such as Alcoholics Anonymous can be very useful in beating this addiction. Your physician can make a referral for you. As alcoholics often are prone to other addictions, you should discuss your use of any other medications with the doctor. ALCOHOL WITHDRAWAL: Your symptoms are caused by alcohol withdrawal. After a period of frequent drinking, the brain and body are changed by the alcohol. When you quit or reduce your drinking, the nervous system becomes unstable. Withdrawal symptoms can start a few hours after your last drink, but sometimes don't begin until a couple of days later. Symptoms can include shakiness, sweating, insomnia, nausea, vomiting, fearfulness, hallucinations, and seizures. In addition to the acute effects of alcohol withdrawal, we often have to deal with the medical effects of alcoholism. These problems often include dehydration, stomach irritation, intestinal bleeding, low blood sugar, liver disease, and pancreas inflammation. Treatment for alcohol withdrawal includes mild sedatives, vitamins, and fluids. You need to be with someone who can help if symptoms become severe. Many patients can withdraw at home. Admission to the hospital or a detox facility may be necessary if withdrawal symptoms are severe and uncontrollable. Abstaining from alcohol is the only effective long-term treatment. If you start drinking again, you will not be able to control yourself after the first drink. Treatment programs are available. In addition, many alcoholics benefit from Alcoholics Anonymous or other support groups available through your counselor or moravian carpet renovator. [employer]-ANON and ELOISE-TEEN are support groups for friends and family members of an alcoholic. Go to the emergency room if you develop persistent vomiting, severe abdominal pain, fever, shortness of breath, hallucinations, uncontrollable tremors, or seizures. DEPRESSION: Your evaluation reveals that you have mental depression. While symptoms may be vague, they often include disturbance of sleep, fatigue, loss of appetite, and general loss of interest in life. While depression may be a side effect of drugs, or a reaction to a major change in your life, many cases have no known cause. If depression is acute, and related to a major loss in your life, you can expect it to clear completely with time. If you have been depressed a long time, are prone to repeated bouts of depression or low mood, or have been thinking of suicide, get help. Depression can be treated with anti-depressant medication and counselling. Long-term depression will often take a few weeks to clear, even with appropriate medication. Follow-up care is important. SUICIDAL IDEATION: Suicidal ideation is a common medical term for thoughts about suicide, which may be as detailed as a formulated plan, without the suicidal act itself. Although most people who undergo suicidal ideation do not commit suicide, some go on to make suicide attempts. The range of suicidal ideation varies greatly from fleeting to detailed planning, role playing, and unsuccessful attempts. While thoughts about suicide are common, most people do not carry out serious actions to commit suicide. Based upon your evaluation and discussion with you, we do not believe you are currently at risk to act upon your thoughts of suicide. You have agreed to return to the Emergency Department, at any time, if you feel inclined to act upon your suicidal thoughts. FOLLOW-UP CARE: If you have been referred to a physician for follow-up care, call the physicians office for an appointment as you were instructed or within the next two days. If you experience worsening or a significant change in your symptoms, notify the physician immediately or return to the Emergency Department at any time for re-evaluation. Referrals: [facility] [Outside] - Follow up as needed Scribe Attestation: 08/18/18 01:38 I personally performed the services described in the documentation, reviewed and edited the documentation which was dictated to the scribe in my presence, and it accurately records my words and actions. Addendum entered and electronically signed by ARIANNE DAWSON LCSWA 08/18/18 11:20: Discharge - Discharge Clinical Impression: Depression with suicidal ideation, Substance abuse Acute alcohol intoxication Qualifiers: Complication of substance-induced condition: uncomplicated Qualified Code(s): F10.920 - Alcohol use, unspecified with intoxication, uncomplicated Condition: Stable Disposition: HOME, SELF-CARE Additional Instructions: You have been evaluated both medical and behavioral health teams and been deemed appropriate for discharge. Currently there are no detox beds available at the [facility] or any of the 3 [place] [facility] detox facilities. You are encouraged to continue working with integrated family services in addition to contacting detox facilities for bed availability. ACUTE ALCOHOL INTOXICATION and ALCOHOL ABUSE: Your evaluation revealed very high levels of alcohol. You can from drinking a large amount of alcohol rapidly! Further, there's the risk of falls, traffic accidents, and fights. A high portion (about 50 percent) of the serious injuries seen in hospital emergency rooms are caused by alcohol. Alcohol overdosage is usually due to an underlying emotional or psychiatric problem. You may benefit from counselling. If "binge" drinking is an ongoing problem for you, or if you drink ANY AMOUNT of alcohol EVERY day, you most likely have a tendency to alcoholism. You should avoid alcohol totally. We can refer you for treatment. Persons with alcohol problems are often also prone to other addictions -- you should discuss any use of medications or drugs with the doctor. You should be watched at home for the next several hours by someone who has not been drinking. Get extra fluids for the next 24 hours. Call the doctor if there is repeated vomiting, increasing headache, decreasing level of alertness, or any other worsening. CHRONIC ALCOHOLISM and ALCOHOL ABUSE: Your evaluation reveals evidence of chronic alcoholism, an addiction to alcohol. The tendency to alcoholism may be inherited. Chronic use of alcohol weakens muscles, causes fatty deposits in the liver, damages the stomach, makes you more prone to infections, and can cause defects in unborn children. In the long run, brain atrophy and cirrhosis of the liver result. You are also at greater risk for certain types of cancer, such as cancer of the mouth, throat, stomach, and liver. Counselling services are available to help you. In-hospital treatment programs often help. Support groups such as Alcoholics Anonymous can be very useful in beating this addiction. Your physician can make a referral for you. As alcoholics often are prone to other addictions, you should discuss your use of any other medications with the doctor. ALCOHOL WITHDRAWAL: Your symptoms are caused by alcohol withdrawal. After a period of frequent drinking, the brain and body are changed by the alcohol. When you quit or reduce your drinking, the nervous system becomes unstable. Withdrawal symptoms can start a few hours after your last drink, but sometimes don't begin until a couple of days later. Symptoms can include shakiness, sweating, insomnia, nausea, vomiting, fearfulness, hallucinations, and seizures. In addition to the acute effects of alcohol withdrawal, we often have to deal with the medical effects of alcoholism. These problems often include dehydration, stomach irritation, intestinal bleeding, low blood sugar, liver disease, and pancreas inflammation. Treatment for alcohol withdrawal includes mild sedatives, vitamins, and fluids. You need to be with someone who can help if symptoms become severe. Many patients can withdraw at home. Admission to the hospital or a detox facility may be necessary if withdrawal symptoms are severe and uncontrollable. Abstaining from alcohol is the only effective long-term treatment. If you start drinking again, you will not be able to control yourself after the first drink. Treatment programs are available. In addition, many alcoholics benefit from Alcoholics Anonymous or other support groups available through your counselor or moravian carpet renovator. [employer]LV[employer]-ANOT[employer] and ELOISE-TEEN are support groups for friends and family members of an alcoholic. Go to the emergency room if you develop persistent vomiting, severe abdominal pain, fever, shortness of breath, hallucinations, uncontrollable tremors, or seizures. DEPRESSION: Your evaluation reveals that you have mental depression. While symptoms may be vague, they often include disturbance of sleep, fatigue, loss of appetite, and general loss of interest in life. While depression may be a side effect of drugs, or a reaction to a major change in your life, many cases have no known cause. If depression is acute, and related to a major loss in your life, you can expect it to clear completely with time. If you have been depressed a long time, are prone to repeated bouts of depression or low mood, or have been thinking of suicide, get help. Depression can be treated with anti-depressant medication and counselling. Long-term depression will often take a few weeks to clear, even with appropriate medication. Follow-up care is important. SUICIDAL IDEATION: Suicidal ideation is a common medical term for thoughts about suicide, which may be as detailed as a formulated plan, without the suicidal act itself. Although most people who undergo suicidal ideation do not commit suicide, some go on to make suicide attempts. The range of suicidal ideation varies greatly from fleeting to detailed planning, role playing, and unsuccessful attempts. While thoughts about suicide are common, most people do not carry out serious actions to commit suicide. Based upon your evaluation and discussion with you, we do not believe you are currently at risk to act upon your thoughts of suicide. You have agreed to return to the Emergency Department, at any time, if you feel inclined to act upon your suicidal thoughts. FOLLOW-UP CARE: If you have been referred to a physician for follow-up care, call the physicians office for an appointment as you were instructed or within the next two days. If you experience worsening or a significant change in your symptoms, notify the physician immediately or return to the Emergency Department at any time for re-evaluation. Referrals: [facility] [Outside] - Follow up as needed Scribe Attestation: 08/18/18 01:38 I personally performed the services described in the documentation, reviewed and edited the documentation which was dictated to the scribe in my presence, and it accurately records my words and actions. Original Note: Entered by RENATE GRANADOS SCRIBE 08/18/18 0055 Acting as scribe for:ОЛЬГА HECK MD ED Psych Disorder / Suicide - General Chief Complaint: Psych Problem Stated Complaint: PSYCH ISSUE Time Seen by Provider: 08/17/18 23:53 Mode of Arrival: Medic Information source: Patient Notes: Patient is a 38 year old female with chronic alcoholism, hepatitis c, liver failure, COPD and a history of alcohol withdrawal, SI presents to the emergency department due to suicidal ideation. Patient states she was on the phone with her ex-boyfriend and expressed thought of SI. The patient's ex-boyfriend then called the police whom found the patient with a knife across her neck. Patient states she does want to kill herself and states "I'm a piece of shit, I feel like no one gives a fuck about me.. I'm also going through withdrawals and I just want to leave this place". Patient was seen here earlier today for intoxication and was discharged to a detox center however she lost her spot due to being unable to find a ride in time. TRAVEL OUTSIDE OF THE [place] IN LAST 30 DAYS: No - Related Data Allergies/Adverse Reactions: chlorpromazine HCl [From Thorazine] Adverse Reaction (Unknown, Verified 08/03/18 22:25) haloperidol [From Haldol] Adverse Reaction (Unknown, Verified 08/03/18 22:25) Past Medical History - General Information source: Patient - Social History Smoking Status: Current Every Day Smoker Cigarette use (# per day): Yes - 1/2 PPD Chew tobacco use (# tins/day): No Smoking Education Provided: No Frequency of alcohol use: Heavy Drug Abuse: None Family History: Arthritis, DM, Hyperlipidemia, Hypertension Patient has suicidal ideation: Yes Patient has homicidal ideation: No - Past Medical History Cardiac Medical History: Reports: Hx Hypercholesterolemia Pulmonary Medical History: Reports: Hx Asthma, Hx Bronchitis Neurological Medical History: Reports: Hx Migraine GI Medical History: Reports: Hx Gastroesophageal Reflux Disease Musculoskeletal Medical History: Reports Hx Arthritis Psychiatric Medical History: Reports: Hx Attention Deficit Hyperactivity Disorder, Hx Bipolar Disorder, Hx Depression Past Surgical History: Reports: Hx Tubal Ligation - Immunizations Immunizations up to date: Yes Hx Diphtheria, Pertussis, Tetanus Vaccination: Yes - 2011 Hx Pneumococcal Vaccination: 05/12/12 Review of Systems - Review of Systems Constitutional: No symptoms reported EENT: No symptoms reported Cardiovascular: No symptoms reported Respiratory: No symptoms reported Gastrointestinal: No symptoms reported Genitourinary: No symptoms reported Female Genitourinary: No symptoms reported Musculoskeletal: No symptoms reported Skin: No symptoms reported Hematologic/Lymphatic: No symptoms reported Neurological/Psychological: See HPI, Suicidal ideation -: Yes All other systems reviewed and negative Physical Exam - Vital signs Vitals: Temp Pulse Resp BP Pulse Ox 97.8 F 95 22 H 113/84 94 08/17/18 23:19 08/17/18 23:19 08/17/18 23:19 08/17/18 23:19 08/17/18 23:19 - Notes Notes: GENERAL: Alert, appears intoxicated, in the hallway attempting to leave when initially seen. No acute distress. HEAD: Normocephalic, atraumatic. EYES: Pupils equal, round, and reactive to light. Extraocular movements intact. ENT: Oral mucosa moist, tongue midline. NECK: Full range of motion. Supple. Trachea midline. Small lacerations to the anterior aspect of the neck, consistent with history. LUNGS: Wheezes. No respiratory distress. HEART: Regular rate and rhythm. No murmurs, gallops, or rubs. ABDOMEN: Soft, non-tender. Non-distended. Bowel sounds present in all 4 quadrants. No guarding, rigidity, or rebound. EXTREMITIES: Moves all 4 extremities spontaneously. NEUROLOGICAL: Alert and oriented x3. Normal speech. PSYCH: Appears depressed. Attempting to leave. States "I'm not shit, I feel no one gives a fuck about me... I just want to leave this place". SKIN: Warm, dry. Course - Vital Signs Vital signs: Temp Pulse Resp BP Pulse Ox 98.3 F 79 20 120/76 97 08/18/18 05:15 08/18/18 05:15 08/18/18 05:15 08/18/18 05:15 08/18/18 05:15 - Laboratory Result Diagrams: 08/18/18 00:04 08/18/18 00:02 Laboratory results interpreted by me: 08/17/18 08/18/1819 23:56 00:02 00:04 Hgb 16.2 H Hct 47.2 H MCV 101 H MCH 34.6 H Seg Neutrophils % 40.5 L Lymphocytes % 51.8 H AST 120 H ALT 78 H Ur Leukocyte Esterase SMALL H Salicylates < 1.0 L Acetaminophen < 10 L - EKG Interpretation by Me EKG shows normal: Sinus rhythm, [place], Intervals, QRS Complexes, ST-T Waves Rate: Normal - 87 Rhythm: NSR Discharge - Discharge Clinical Impression: Depression with suicidal ideation, Substance abuse Acute alcohol intoxication Qualifiers: Complication of substance-induced condition: uncomplicated Qualified Code(s): F10.920 - Alcohol use, unspecified with intoxication, uncomplicated Condition: Stable Disposition: PSYCH HOSP/UNIT Scribe Attestation: 08/18/18 01:38 I personally performed the services described in the documentation, reviewed and edited the documentation which was dictated to the scribe in my presence, and it accurately records my words and actions. I personally performed the services described in the documentation, reviewed and edited the documentation which was dictated to the scribe in my presence, and it accurately records my words and actions.
[2018-08-18] MEDS ORDERED: HYDROXYZINE PAMOATE 50 MG CAPSULE PO PRN (10:04)
--- NOTE | 2018-08-18 10:07 | ER Document Report ---
Doctor's Note Notes: 08/18/18 10:05 Rounds: Chart reviewed and patient interviewed. Patient is here for suicidal thoughts. Also history of alcohol abuse and previous alcohol withdrawal. Blood alcohol when patient was admitted last evening was 295. Other labs unremarkable. Drug screen was positive for benzos and marijuana. Patient says that she is been out of her mental medications for about 9 months and instead, drinks heavily of alcohol. Vital signs are all essentially normal. Will prescribe the patient some Vistaril 50 mg 4 times a day as needed for withdrawal symptoms. Patient appears to be medically stable for transfer or discharge. Emiliano Galan MD
[2018-08-18] MEDS ORDERED: HYDROXYZINE PAMOATE 50 MG CAPSULE ONE (10:48)
--- NOTE | 2018-08-18 11:18 | PSYCHOLOGICAL NOTE ---
Psych Note - Psych Note Date seen by psych provider: 08/18/18 Time seen by psych provider: 07:27 - 0050 Psych Note: Reason for Consult: Suicidal ideation/alcohol abuse Patient is a 38 year old female with chronic alcoholism, hepatitis c, liver failure, COPD and a history of alcohol withdrawal, SI presents to the emergency department due to suicidal ideation. Patient reportedly held a knife to her neck and there was "superficial abrasions" to neck from knife per attending nurse. Patient identifies being upset because there was no detox beds available yesterday when she called. She continued to disclose that she has a bed on 08/16/2018; however, she was unable to get a ride to the facility. She expressed frustration that [facility] is unable to provided transportation to detox. She confirms she has asked her brother for assistance and states he will transp ort her to detox. Patient is alert and orientated to person, place, time and circumstance. Mood is irritable with congruent affect. Patient denies suicidal and homicidal ideations. Patient confirms suicidal gesture when upset there was not detox bed available at the [facility]. Delusions are absent behaviors congruent with an intact reality based presentation i.e. organized and linear thought process. Eye contact is fair. Conversational speech is within normal rate, tone and prosody. Intellectual abilities appear to be within the average range. Attention and concentration are fair. Insight, judgment, impulse control are historically poor for this patient. no medication recommendations at this time 303.90 (F10.20) Alcohol Use Disorder, severe 304.10 (F13.20) Benzodiazepine Use Disorder, Moderate 296.52 (F31.32) Bipolar I Disorder, Depressed, Recurrent, Moderate by history Cluster B personality Traits are noted Impression\\plan: Patient is recommended for rescind of IVC and is cleared from acute psychiatric services. Patient no longer meets IVC criteria per [place] GS 122C. She has no longer under the influence. Patient is well-known to this clinician and department. She has a long history of substance abuse in addition to demonstrating cluster B personality traits and suicidal gestures. This patient does have a history of acting out behaviorally when attempting to achiev e secondary gains. There is currently no beds available at the [facility] or any of the [facility] [place] detox facilities today. Patient identifying her youngest brother as her transportation and will ask him to drive her once a bed is available. Patient is highly encouraged to follow-up with her outpatient mental health services for substance abuse treatment; this information was provided. Dr. Pink was consulted and the care management of this patient; attending physicians in agreement with recommendations and disposition
--- NOTE | 2018-08-18 11:54 | EKG REPORT ---
SEVERITY:- NORMAL ECG - SINUS RHYTHM : Confirmed by: Cj Solis MD 18-Aug-2018 11:53:32
[2018-08-18 13:05] VITALS: BP 123/82
== END 2018-08-18 13:05 | disposition home or self-care (01) ==
LOC: ER 22:58
DX: F31.9 Bipolar disorder, unspecified (principal); S11.91XA Laceration without foreign body of unspecified part of neck, initial encounter; X78.1XXA Intentional self-harm by knife, initial encounter; F10.220 Alcohol dependence with intoxication, uncomplicated; Y90.8 Blood alcohol level of 240 mg/100 ml or more; J44.9 Chronic obstructive pulmonary disease, unspecified; F17.210 Nicotine dependence, cigarettes, uncomplicated
CPT/HCPCS: 93005; 99285; 90471; 36415; 80307 ×4; 84703; 85025; 80053; 81001; 90715; 93010; J3490 ×2

== ENCOUNTER 2018-11-10 23:52 | Emergency (ER) | payer MEDICAID ==
--- NOTE | 2018-11-11 00:08 | ER Document Report ---
ED General - General Stated Complaint: IVC Time Seen by Provider: 11/11/18 00:04 Notes: Patient is a 38-year-old female, with history of depression that presents to the emergency department for chief complaint of suicidal ideation alcohol intoxication. History is provided by 's deputy, he was on scene as the patient is not willing to have discussion at this time. He reports that the patient was apparently intoxicated, and threatened to cut her throat with a knife, and mobile crisis was present at that time, she has a history of depression, and suicidal ideation in the past. No other history obtainable at this time as the patient is not wanting to discuss her answer any questions at this time. Past Medical History: Depression, anxiety Past Surgical History: Reviewed in the chart Social History: History of smoking cigarettes and alcohol use, no reported illicit drug use. Family History: Reviewed and noncontributory for presenting illness Allergies: Reviewed, see documented allergy list. REVIEW OF SYSTEMS: Complete review of systems is unobtainable at this time as the patient is not wanting to discuss anything that happened this evening. PHYSICAL EXAMINATION: Vital signs reviewed, nursing noted reviewed. GENERAL: Patient withdrawn, no eye contact, not wanting to answer questions, but in no acute distress. HEAD: Atraumatic, normocephalic. EYES: Eyes appear normal, extraocular movements intact, sclera anicteric, conjunctiva are normal. ENT: nares patent, oropharynx clear without exudates. Moist mucous membranes. NECK: Normal range of motion, supple without lymphadenopathy LUNGS: Breath sounds clear to auscultation bilaterally and equal. No wheezes rales or rhonchi. HEART: Regular rate and rhythm without murmurs ABDOMEN: Soft, nontender, normoactive bowel sounds. No rebound, guarding, or rigidity. No masses appreciated. EXTREMITIES: Nontender, good range of motion, no pitting or edema. NEUROLOGICAL: No focal neurological deficits. Moves all extremities spontaneously Motor and sensory grossly intact on exam. PSYCH: Patient withdrawn, not wanting to answer questions at this time. SKIN: Warm, Dry, normal turgor, no rashes or lesions noted on exposed skin TRAVEL OUTSIDE OF THE [place] IN LAST 30 DAYS: No - Related Data Allergies/Adverse Reactions: chlorpromazine HCl [From Thorazine] Adverse Reaction (Unknown, Verified 08/03/18 22:25) haloperidol [From Haldol] Adverse Reaction (Unknown, Verified 08/03/18 22:25) Past Medical History - Social History Smoking Status: Current Every Day Smoker Family History: Arthritis, DM, Hyperlipidemia, Hypertension - Past Medical History Cardiac Medical History: Reports: Hx Hypercholesterolemia Pulmonary Medical History: Reports: Hx Asthma, Hx Bronchitis Neurological Medical History: Reports: Hx Migraine Renal/ Medical History: Denies: Hx Peritoneal Dialysis GI Medical History: Reports: Hx Gastroesophageal Reflux Disease Musculoskeletal Medical History: Reports Hx Arthritis Psychiatric Medical History: Reports: Hx Attention Deficit Hyperactivity Disorder, Hx Bipolar Disorder, Hx Depression Past Surgical History: Reports: Hx Tubal Ligation - Immunizations Immunizations up to date: Yes Hx Diphtheria, Pertussis, Tetanus Vaccination: Yes - 2011 Hx Pneumococcal Vaccination: 05/12/12 Physical Exam - Vital signs Vitals: Temp Pulse Resp BP Pulse Ox 98.5 F 106 H 16 105/53 L 97 11/11/18 00:52 11/11/18 00:52 11/11/18 00:52 11/11/18 00:52 11/11/18 00:52 Course - Re-evaluation Re-evalutation: Patient seen and examined, vital signs reviewed. Medical screening testing was ordered including bloodwork, EKG, and toxicology. Results of testing were reviewed. Testing demonstrated unremarkable blood work with the exception of an elevated alcohol level at 220. Patient has been stable from a hemodynamic standpoint. At this point I feel that the patient is medically cleared and can be further evaluated from a psychiatric standpoint for final disposition from the emergency department. IVC paperwork has been completed prior to the patient's arrival, and I believe it should remain intact at this time as the patient is unwilling to discuss events of this evening, and had made comments about killing herself by slitting her throat. Patient updated on plan of care. Laboratory 11/11/18 11/11/18 11/11/18 00:15 00:15 00:15 WBC 6.0 RBC 4.32 Hgb 14.9 Hct 42.9 MCV 99 H MCH 34.4 H MCHC 34.7 RDW 13.1 Plt Count 100 L Lymph % (Auto) 37.7 [place] % (Auto) 17.5 H Eos % (Auto) 6.0 Baso % (Auto) 0.4 Absolute Neuts (auto) 2.3 Absolute Lymphs (auto) 2.2 Absolute Monos (auto) 1.0 Absolute Eos (auto) 0.4 Absolute Basos (auto) 0.0 Seg Neutrophils % 38.4 L Sodium 144.3 Potassium 4.0 Chloride 112 H Carbon Dioxide 23 Anion Gap 9 BUN 4 L Creatinine 0.49 L Est GFR ( Amer) > 60 Est GFR (MDRD) Non-Af > 60 Glucose 120 H Calcium 9.3 Total Bilirubin 0.9 Direct Bilirubin 0.7 H Neonat Total Bilirubin Not Reportable Neonat Direct Bilirubin Not Reportable Neonat Indirect Bili Not Reportable AST 373 H ALT 305 Alkaline Phosphatase 193 H Total Protein 7.0 Albumin 3.7 Serum HCG, Qual NEGATIVE Salicylates < 1.0 L Acetaminophen < 10 L Serum Alcohol 252 - Vital Signs Vital signs: Temp Pulse Resp BP Pulse Ox 98.5 F 106 H 16 105/53 L 97 11/11/18 00:52 11/11/18 00:52 11/11/18 00:52 11/11/18 00:52 11/11/18 00:52 - Laboratory Result Diagrams: 11/11/18 00:15 11/11/18 00:15 Laboratory results interpreted by me: 11/11/18 11/11/18 00:15 00:15 MCV 99 H MCH 34.4 H Plt Count 100 L [place] % (Auto) 17.5 H Seg Neutrophils % 38.4 L Chloride 112 H BUN 4 L Creatinine 0.49 L Glucose 120 H Direct Bilirubin 0.7 H AST 373 H Alkaline Phosphatase 193 H Salicylates < 1.0 L Acetaminophen < 10 L - EKG Interpretation by Me Additional EKG results interpreted by me: EKG demonstrates sinus tachycardia with a ventricular rate of 103 bpm, normal axis, normal intervals, no evidence of acute ischemia in this EKG, compared with prior from 08/18/2018, without significant change. Discharge - Discharge Clinical Impression: Suicidal ideation Acute alcohol intoxication Qualifiers: Complication of substance-induced condition: uncomplicated Qualified Code(s): F10.920 - Alcohol use, unspecified with intoxication, uncomplicated Condition: Stable Disposition: PSYCH HOSP/UNIT
[2018-11-11 00:37] LABS: ABSOLUTE EOSINOPHILS # (AUTO) 0.4 10^3/uL (0.0-0.6); ABSOLUTE LYMPHOCYTES (AUTO) 2.2 10^3/uL (0.5-4.7); ABSOLUTE NEUT (AUTO) 2.3 10^3/uL (1.7-8.2); BASOPHILS % (AUTO) 0.4 % (0-2); HEMATOCRIT 42.9 % (36.0-47.0); HEMOGLOBIN 14.9 g/dL (12.0-15.5); LYMPHOCYTES % (AUTO) 37.7 % (13-45); MEAN CORPUSCULAR HEMOGLOBIN 34.4 pg (27.0-33.4); MEAN CORPUSCULAR HGB CONC 34.7 g/dL (32.0-36.0); MEAN CORPUSCULAR VOLUME 99 fl (80-97); MONOCYTES % (AUTO) 17.5 % (3-13); PLATELET COUNT 100 10^3/uL (150-450); RED BLOOD COUNT 4.32 10^6/uL (3.72-5.28); RED CELL DISTRIBUTION WIDTH 13.1 % (11.5-14.0); SEGMENTED NEUTROPHILS % (AUTO) 38.4 % (42-78); TOTAL CELLS COUNTED % (AUTO) 100 %
[2018-11-11 01:00] LABS: ALBUMIN 3.7 g/dL (3.5-5.0); ALCOHOL 252 mg/dL (NONE DETECTED); ALKALINE PHOSPHATASE 193 U/L (38-126); ANION GAP 9 (5-19); ASPARTATE AMINO TRANSFERASE 373 U/L (14-36); BILIRUBIN,DIRECT 0.7 mg/dL (0.0-0.4); BILIRUBIN,TOTAL 0.9 mg/dL (0.2-1.3); BLOOD UREA NITROGEN 4 mg/dL (7-20); CALCIUM 9.3 mg/dL (8.4-10.2); CARBON DIOXIDE 23 mmol/L (22-30); CHLORIDE 112 mmol/L (98-107); GLUCOSE 120 mg/dL (75-110)
[2018-11-11 01:02] LABS: ACETAMINOPHEN < 10 ug/mL (10-30); SALICYLATE < 1.0 mg/dL (2.0-20.0)
[2018-11-11 08:54] LABS: APPEARANCE,URINE SLIGHTLY-CLOUDY; BILIRUBIN,URINE NEGATIVE (NEGATIVE); COLOR,URINE YELLOW; GLUCOSE, URINE NEGATIVE (NEGATIVE); KETONES,URINE NEGATIVE (NEGATIVE); LEUKOCYTE ESTERASE,URINE NEGATIVE (NEGATIVE); NITRITE,URINE NEGATIVE (NEGATIVE); PROTEIN,URINE NEGATIVE (NEGATIVE); URINE SPECIFIC GRAVITY 1.014
[2018-11-11 09:07] LABS: URINE BARBITURATES SCREEN NEGATIVE; URINE BENZODIAZEPINES SCREEN UNCONFIRMED POSITIVE; URINE COCAINE SCREEN UNCONFIRMED POSITIVE; URINE MARIJUANA (THC) SCREEN NEGATIVE; URINE METHADONE SCREEN NEGATIVE; URINE PHENCYCLIDINE SCREEN NEGATIVE
--- NOTE | 2018-11-11 09:39 | EKG REPORT ---
SEVERITY:- OTHERWISE NORMAL ECG - SINUS TACHYCARDIA : Confirmed by: Cj Solis MD 11-Nov-2018 09:38:45
--- NOTE | 2018-11-11 10:22 | PSYCHOLOGICAL NOTE ---
Psych Note - Psych Note Date seen by psych provider: 11/11/18 Time seen by psych provider: 07:57 - Chart review at 0757. Evalutation from [id number]. Psych Note: Presenting Problem: IVC via [facility] for alcohol intoxication, admitted to polysubstance use (heroin, methamphetamine, cocaine and Xanax not her prescription), SI with threat to slit throat, grabbed knife during MCM assessment, pulled knife on LE, combative/resistant/uncooperative. Serum Alcohol level was 252 upon arrival to the ED. Patient clogged toilet with urine screen cup. UDS positive for methamphetamine, benzodiazepines and cocaine. Today she admitted to SI last night which was why she called [facility]. She denied current SI. She admitted to being an alcoholic, stated she had 1.5 40 ounce beers so she stated "about 5 beers which is good for me." When confronted about being positive for methamphetamine she stated "yeah I knew I'd be positive for that, I don't have a problem it's my boyfriend, my problem is peer pressure." She stated she has started back at [facility] once a month for medication management, is prescribed Neurontin and Zyprexa both TID, was going to do therapy but decided not to. Patient has been seen by [facility] multiple times for alcohol and SA, AMS, possible ODs and others. Last time seen was 08/28/18 for exact same etiology (polysubstance intoxication, SI, sobered up, denied SI, detox facilities full, encouraged calling in daily for bed availability and at the very least outpatient support). Patient was alert and oriented x5 with linear thinking, mood was euthymic with congruent affect, she denied current SI/HI, made fair eye contact, engaged in evaluation and carried on dialogue conversation and conversational speech was within normal limits for rate/tone/prosody. Recommended linkage to [facility] for Voluntary detox. Patient not able to make immediate decision. Diagnosis: Polysubstance Use and Intoxication Alcohol Use Disorder, Severe Methamphetamine Use Disorder, Moderate Cocaine Use Disorder, Moderate R/O Bipolar Disorder Impression/Plan: Patient is cleared from acute psychiatric services. Recommendation to rescind IVC. She had time to sober up from multiple substances. Patient was alert and oriented x5 with linear thinking, mood was euthymic with congruent affect, she denied current SI/HI, made fair eye contact, engaged in evaluation and carried on dialogue conversation and conversational speech was within normal limits for rate/tone/prosody. Suggested and encouraged voluntary detox. Patient unable to commit. Coordinated care with [facility] (Marisabel) regarding discharge, recommendation for detox, patient not committing to it, so they will follow up with patient llater in the day and assist with detox placement it she agrees to it. She was encouraged to at the very least follow up with [facility] and get involved in dual diagnosis (MH and SA treatment) to include therapy of some sort. She was going to reach out to her boyfriend's mother or call a Taxi for transport home. Consulted with Dr. Pink regarding the management and care of patient. ED Physician in agreement with recommendations.
--- NOTE | 2018-11-11 10:45 | ER Document Report ---
Doctor's Note Notes: 11/11/18 10:43 Patient is a 38-year-old female brought into the emergency department for evaluation as an IVC. This woman has a significant alcohol dependence issue. She states that she remembers holding a knife to her throat. She states that she is surprised her blood alcohol level is as high as it was, as she has sign ificantly cut down. She states that she is not suicidal or homicidal. She is taking her medications. She sees a counselor. She states she is interested in quitting drinking, would consider a rehab program, but "not right now." She admits to succumbing to peer pressure from her boyfriend and smoking crack on occasion as well. She denies any chest pain or shortness of breath. Has no other acute complaints or concerns. On physical exam is a 38-year-old disheveled female who appears her stated age. She makes good eye contact is cooperative with examiner. Heart is regular rate and rhythm, lungs clear to station bilaterally. Skin is warm and dry. At this point is a 38-year-old female who expressed suicidal ideation with a knife to her throat while intoxicated. At this time she is no longer intoxicated, denies any suicidal thoughts. Will await psychosocial evaluation and recommendations.
[2018-11-11 11:13] VITALS: BP 113/78
== END 2018-11-11 13:13 | disposition home or self-care (01) ==
LOC: ER 23:52
DX: R45.851 Suicidal ideations (principal); F19.10 Other psychoactive substance abuse, uncomplicated; F14.10 Cocaine abuse, uncomplicated; F10.920 Alcohol use, unspecified with intoxication, uncomplicated
CPT/HCPCS: 36415; 80053; 80307; 81001; 84703; 85025; 93005; 93010; 99285

== ENCOUNTER 2018-12-06 02:21 | Emergency (ER) | payer MEDICAID ==
[2018-12-06] MEDS ORDERED: HALOPERIDOL LACTATE INJ 5 MG/1 ML VIAL IM ONE (02:40)
[2018-12-06] MEDS ORDERED: HALOPERIDOL LACTATE INJ 5 MG/1 ML VIAL ONE (02:41)
--- NOTE | 2018-12-06 02:44 | ER Document Report ---
ED General - General Chief Complaint: Psych Problem Stated Complaint: IVC WITH PAPERS Time Seen by Provider: 12/06/18 02:35 TRAVEL OUTSIDE OF THE [place] IN LAST 30 DAYS: No - HPI Notes: Note patient is hostile, verbally abusive making history somewhat limited. Patient brought in by mobile crisis under involuntary commitment. Long-standing psychiatric history including substance abuse and prior suicide attempts. Apparently they were called out tonight, at some point the patient pulled out a knife and held it up to her own throat and threatened to cut her throat. She is been drinking an unknown amount of alcohol. Indicating that she is going to kill herself. Minimal other information is available. - Related Data Allergies/Adverse Reactions: chlorpromazine HCl [From Thorazine] Adverse Reaction (Unknown, Verified 08/03/18 22:25) haloperidol [From Haldol] Adverse Reaction (Unknown, Verified 08/03/18 22:25) Past Medical History - General Information source: Patient - Social History Smoking Status: Unknown if Ever Smoked Frequency of alcohol use: Patient will not state Family History: Arthritis, DM, Hyperlipidemia, Hypertension - Past Medical History Cardiac Medical History: Reports: Hx Hypercholesterolemia Pulmonary Medical History: Reports: Hx Asthma, Hx Bronchitis Neurological Medical History: Reports: Hx Migraine Renal/ Medical History: Denies: Hx Peritoneal Dialysis GI Medical History: Reports: Hx Gastroesophageal Reflux Disease Musculoskeletal Medical History: Reports Hx Arthritis Psychiatric Medical History: Reports: Hx Attention Deficit Hyperactivity Disorder, Hx Bipolar Disorder, Hx Depression Past Surgical History: Reports: Hx Tubal Ligation - Immunizations Immunizations up to date: Yes Hx Diphtheria, Pertussis, Tetanus Vaccination: Yes - 2011 Hx Pneumococcal Vaccination: 05/12/12 Review of Systems - Review of Systems -: Yes ROS unobtainable due to patient's medical condition - Patient is hostile, verbally abusive and uncooperative Physical Exam - Notes Notes: General: Well devloped, no acute distress. Intoxicated HEENT: Normocephalic, atraumatic. Pupils equal round reactive to light. Mucosa moist. No JVD. Chest: No trauma, normal excursion. Respiratory: Good air exchange, normal excursion. Cardiac: Regular rhythm Abdomen: Soft, benign. Nondistended. Back: No asymmetry or gross abnormality. Motor: Grossly normal power and tone. Neurologic: Alert, nonfocal. Hostile, belligerent and verbally abusive Vascular: Well perfused Skin: No petechiae or purpura Course - Re-evaluation Re-evalutation: 12/06/18 02:43 38-year-old female acutely intoxicated, likely polysubstance abuse with suicidal ideation. Patient does not at this point represent substantial risk to herself. She presents under involuntary commitment from [facility]. Despite several attempts at de-escalation using a variety of techniques, the patient remains uncooperative, agitated and hostile. She is going to receive injection Haldol for safety and to assist with further evaluation. 12/06/18 05:25 Labs reviewed, CBC unremarkable, chemistries unremarkable. Mild elevation in LFTs likely secondary to chronic alcoholism. Urine unremarkable. Toxicology work-up is negative with the exception of cocaine positive urine and elevated alcohol to 28. Patient ultimately did require injection Haldol and restraints for her safety given her agitation and violent outburst. She is now sleeping comfortably, arousable,. She is medically stable and we will arrange for continued psychiatric evaluation. - Laboratory Result Diagrams: 12/06/18 03:15 12/06/18 03:15 Laboratory results interpreted by me: 12/06/18 12/06/18 03:15 03:15 MCV 99 H MCH 34.8 H Chloride 111 H BUN 4 L AST 156 H Alkaline Phosphatase 155 H Salicylates < 1.0 L Acetaminophen < 10 L Discharge - Discharge Clinical Impression: Suicidal ideation, Substance abuse Condition: Stable Disposition: PSYCH HOSP/UNIT
[2018-12-06 03:25] LABS: ABSOLUTE BASOPHILS # (AUTO) 0.1 10^3/uL (0.0-0.2); ABSOLUTE EOSINOPHILS # (AUTO) 0.2 10^3/uL (0.0-0.6); ABSOLUTE LYMPHOCYTES (AUTO) 3.1 10^3/uL (0.5-4.7); ABSOLUTE MONOCYTES (AUTO) 0.5 10^3/uL (0.1-1.4); BASOPHILS % (AUTO) 1.4 % (0-2); EOSINOPHILS % (AUTO) 3.4 % (0-6); HEMATOCRIT 43.2 % (36.0-47.0); HEMOGLOBIN 15.1 g/dL (12.0-15.5); MEAN CORPUSCULAR HEMOGLOBIN 34.8 pg (27.0-33.4); MEAN CORPUSCULAR VOLUME 99 fl (80-97); MONOCYTES % (AUTO) 7.3 % (3-13); PLATELET COUNT 168 10^3/uL (150-450); RED BLOOD COUNT 4.35 10^6/uL (3.72-5.28); RED CELL DISTRIBUTION WIDTH 13.4 % (11.5-14.0); SEGMENTED NEUTROPHILS % (AUTO) 42.9 % (42-78); TOTAL CELLS COUNTED % (AUTO) 100 %; WHITE BLOOD COUNT 6.9 10^3/uL (4.0-10.5)
[2018-12-06 03:35] LABS: APPEARANCE,URINE CLEAR; BILIRUBIN,URINE NEGATIVE (NEGATIVE); COLOR,URINE COLORLESS; GLUCOSE, URINE NEGATIVE (NEGATIVE); KETONES,URINE NEGATIVE (NEGATIVE); LEUKOCYTE ESTERASE,URINE NEGATIVE (NEGATIVE); NITRITE,URINE NEGATIVE (NEGATIVE); PROTEIN,URINE NEGATIVE (NEGATIVE); UROBILINOGEN,URINE NEGATIVE mg/dL (<2.0)
[2018-12-06 03:46] LABS: ALBUMIN 3.9 g/dL (3.5-5.0); ALCOHOL 228 mg/dL (NONE DETECTED); ALKALINE PHOSPHATASE 155 U/L (38-126); ANION GAP 10 (5-19); ASPARTATE AMINO TRANSFERASE 156 U/L (14-36); BILIRUBIN,DIRECT 0.4 mg/dL (0.0-0.4); BILIRUBIN,TOTAL 0.5 mg/dL (0.2-1.3); BLOOD UREA NITROGEN 4 mg/dL (7-20); CARBON DIOXIDE 23 mmol/L (22-30); CHLORIDE 111 mmol/L (98-107); GLUCOSE 98 mg/dL (75-110); POTASSIUM 4.1 mmol/L (3.6-5.0); TOTAL PROTEIN 7.2 g/dL (6.3-8.2)
[2018-12-06 03:48] LABS: ACETAMINOPHEN < 10 ug/mL (10-30); SALICYLATE < 1.0 mg/dL (2.0-20.0)
[2018-12-06 04:08] LABS: URINE AMPHETAMINES SCREEN NEGATIVE; URINE BARBITURATES SCREEN NEGATIVE; URINE BENZODIAZEPINES SCREEN NEGATIVE; URINE COCAINE SCREEN UNCONFIRMED POSITIVE; URINE MARIJUANA (THC) SCREEN NEGATIVE; URINE METHADONE SCREEN NEGATIVE; URINE PHENCYCLIDINE SCREEN NEGATIVE
--- NOTE | 2018-12-06 09:13 | EKG REPORT ---
SEVERITY:- BORDERLINE ECG - SINUS RHYTHM BORDERLINE T ABNORMALITIES, ANTERIOR LEADS BORDERLINE PROLONGED QT INTERVAL : Confirmed by: Cole Booker 06-Dec-2018 09:12:18
--- NOTE | 2018-12-06 11:40 | PSYCHOLOGICAL NOTE ---
Psych Note - Psych Note Date seen by psych provider: 12/06/18 Time seen by psych provider: 11:00 Psych Note: Reason for Consult: IVC Patient brought in by mobile crisis under involuntary commitment. Long-standing psychiatric history including substance abuse and prior suicide attempts. Apparently they were called out tonight, at some point the patient pulled out a knife and held it up to her own throat and threatened to cut her throat. Patient discloses that she wants assistance in sobriety however states she has no interest in going to [facility]. She continued to state that she would be willing to go to the [facility] and that the [facility] family services told her they would help with transportation if she obtains a bed. She denies any thoughts of wanting to hurt herself or others. Patient disclosed that she was drinking quite a bit last night and used cocaine. Behavior health team contacted the [facility] and [facility] facilities; there is currently no beds available. Patient is alert and orientated to person, place, time and circumstance. Mood is irritable with congruent affect. Patient denies suicidal and homicidal ideations. Patient confirms suicidal gesture last night; patient has sa history of Suicidal geatures and comments while under the influence and when attempting to obtain secondary gains. Delusions are absent behaviors congruent with an intact reality based presentation i.e. organized and linear thought process. Eye contact is fair. Conversational speech is within normal rate, tone and prosody. Intellectual abilities appear to be within the average range. Attention and concentration are fair. Insight, judgment, impulse control are historically poor for this patient. no medication recommendations at this time 303.90 (F10.20) Alcohol Use Disorder, severe 304.10 (F13.20) Benzodiazepine Use Disorder, Moderate 296.52 (F31.32) Bipolar I Disorder, Depressed, Recurrent, Moderate by history Cluster B personality Traits are noted Impression\plan: Patient is recommended for rescind of IVC and is cleared from acute psychiatric services. Patient no longer meets IVC criteria per [place] GS 122C. She has no longer under the influence of cocaine or alcohol. Patient is well-known to this clinician and department. She has a long history of substance abuse in addition to demonstrating cluster B personality traits and suicidal gestures. This patient does have a history of acting out behaviorally when attempting to achieve secondary gains. There is currently no beds available at the [facility] or any of the 3 [facility] detox facilities today. Patient refused treatment at the [facility]. Patient is highly encouraged to follow-up with her outpatient mental health services for substance abuse treatment; this information was provided. Dr. Pink was consulted and the care management of this patient; attending physicians in agreement with recommendations and disposition
--- NOTE | 2018-12-06 12:51 | ER Document Report ---
Doctor's Note Notes: 12/06/18 12:50 He was seen and examined. Initially here she was intoxicated, complaining of suicidal ideation. This is not a new complaint for her. Right now she denies being suicidal. She is only angry that she called mobile crisis, because she states she is going to be "withdrawing out and that heat without a ride home." She denies any other acute complaints or concerns, feel safe being discharged, although again is unhappy about her being without a ride. On exam this is a 38-year-old female who appears older than her stated age. She is mildly agitated but makes good eye contact. Heart is regular rate and rhythm, lungs are clear station bilaterally. Skin is warm and dry. Patient is medically clear, clear from a psychosocial standpoint. We will discharge her with outpatient follow-up. She is to continue her medications.
[2018-12-06 13:19] VITALS: BP 119/85
== END 2018-12-06 13:19 | disposition home or self-care (01) ==
LOC: ER 02:21
DX: R45.851 Suicidal ideations (principal); Y90.1 Blood alcohol level of 20-39 mg/100 ml; F10.129 Alcohol abuse with intoxication, unspecified; J45.909 Unspecified asthma, uncomplicated; R79.89 Other specified abnormal findings of blood chemistry; Z78.1 Physical restraint status
CPT/HCPCS: 93005; 99285; 96372; 36415; 80307 ×4; 84703; 85025; 80053; 81001; 93010; J1630

== ENCOUNTER 2019-08-15 13:23 | Emergency (ER) | payer MEDICAID | END 2019-08-15 14:00 | disposition left against medical advice (07) | LOC: ER 13:23 | DX: Z53.21 Procedure and treatment not carried out due to patient leaving prior to being seen by health care provider (principal) ==

== ENCOUNTER → 2019-12-24 | Outpatient (CLI) | payer MEDICAID ==
--- NOTE | 2019-12-24 12:51 | RADIOLOGY REPORT (SQ) ---
EXAM DESCRIPTION: C SP 4 OR 5 VIEWS IMAGES COMPLETED DATE/TIME: 12/24/2019 12:00 pm REASON FOR STUDY: CERVICALGIA M54.5 LOW BACK PAIN M54.2 CERVICALGIA COMPARISON: None. NUMBER OF VIEWS: Five views. TECHNIQUE: AP, lateral, obliques and odontoid radiographic images acquired of the cervical spine. LIMITATIONS: None. FINDINGS: MINERALIZATION: Normal. ALIGNMENT: Anatomic. VERTEBRAE: Vertebral bodies of normal height. DISCS: No significant osteophytes or sclerosis. Disc height maintained. FORAMINA: No osteophytes or foraminal narrowing. LATERAL AND POSTERIOR ELEMENTS: Facets, lateral masses and spinous processes without significant find ings. HARDWARE: None in the spine. SOFT TISSUES: No masses or calcifications. Lung apices clear. OTHER: No other significant finding. IMPRESSION: NO SIGNIFICANT RADIOGRAPHIC FINDING IN THE CERVICAL SPINE. TECHNICAL DOCUMENTATION: JOB ID: [id number] 2010 [email or web address]- All Rights Reserved Reading location - IP/workstation name: [email or web address]
--- NOTE | 2019-12-24 12:52 | RADIOLOGY REPORT (SQ) ---
EXAM DESCRIPTION: LUMBAR SPINE COMPLETE IMAGES COMPLETED DATE/TIME: 12/24/2019 12:00 pm REASON FOR STUDY: LBP M54.5 LOW BACK PAIN M54.2 CERVICALGIA COMPARISON: None. NUMBER OF VIEWS: Five views including obliques. TECHNIQUE: AP, lateral, oblique, and sacral radiographic images acquired of the lumbar spine. LIMITATIONS: None. FINDINGS: MINERALIZATION: Normal. SEGMENTATION: Normal. No transitional anatomy. ALIGNMENT: Normal. VERTEBRAE: Maintained height. No fracture or worrisome bone lesion. DISCS: Preserved height. No significant osteophytes or end plate irregularity. POSTERIOR ELEMENTS: Pedicles and facets are intact. No pars defect or posterior arch defects. HARDWARE: None in the spine. PARASPINAL SOFT TISSUES: Normal. PELVIS: Intact as visualized. No fractures or worrisome bone lesions. SI joints intact. OTHER: No other significant finding. IMPRESSION: NORMAL 5 VIEW LUMBAR SPINE. TECHNICAL DOCUMENTATION: JOB ID: [id number] 2010 [employer]- All Rights Reserved Reading location - IP/workstation name: [email or web address]
== END ==
LOC: OD 11:34
PROVIDERS: ATTEND Physician Assistant
DX: M54.5 Low back pain (principal); M54.2 Cervicalgia
CPT/HCPCS: 72050; 72110

== ENCOUNTER 2020-03-23 21:54 | Emergency (ER) | payer MEDICAID ==
[2020-03-23] MEDS ORDERED: LIDOCAINE 1% INJ-PF (10 MG/ML) 30 ML SDV INJ ONE (22:42)
[2020-03-23] MEDS ORDERED: ZOLPIDEM TARTRATE 5 MG TABLET PO ONE ×2 (22:42→22:55)
[2020-03-23] MEDS ORDERED: BUPIVACAINE HCL 0.5 % INJ/PF 30 ML SDV INJ ONE (22:43)
[2020-03-23] MEDS ORDERED: DIPHENHYDRAMINE HCL 50 MG/ML VIAL IM ONE (22:44)
[2020-03-23] MEDS ORDERED: DIPH/PERTUSS(ACELL)/TETANUS VAC/PF 0.5 ML SYR (>=10YO) IM ONE (22:45)
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
--- NOTE | 2020-03-23 23:35 | RADIOLOGY REPORT (SQ) ---
Right fifth finger x-ray three views on 03/23/2020 at 10:54 PM CLINICAL INDICATION: Right fifth finger injury, pain COMPARISON: 02/26/2013 FINDINGS: There is no radiopaque foreign body. There are no fractures. Visualized joints are well aligned. No bony abnormality is noted. IMPRESSION: No acute abnormality.
[2020-03-24 08:08] VITALS: BP 119/67
== END 2020-03-24 08:08 | disposition home or self-care (01) ==
LOC: ER 21:54
DX: S61.216A Laceration without foreign body of right little finger without damage to nail, initial encounter (principal); X99.1XXA Assault by knife, initial encounter; Y92.009 Unspecified place in unspecified non-institutional (private) residence as the place of occurrence of the external cause; Z23 Encounter for immunization; F10.120 Alcohol abuse with intoxication, uncomplicated; J45.909 Unspecified asthma, uncomplicated; G47.00 Insomnia, unspecified
CPT/HCPCS: 99283; 73140; 90715; 12001; J3490 ×3